=== PATIENT | female | born 2005 | race Caucasian/White ===

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

== ENCOUNTER 2024-02-02 19:55 | Emergency (ER) | payer OTHER, SELFPAY ==
--- NOTE | 2024-02-02 22:10 | RAD REPORT ---
EXAM: Hand Left 3 View HISTORY: [facility] MAIN PAIN Bed Name: [id number] COMPARISON: None TECHNIQUE: 3 radiographic views of the LEFT hand submitted. FINDINGS: No evidence of acute fracture or dislocation. Joint alignment is maintained. Dorsal soft t issue swelling is seen.. No significant degenerative changes are present. IMPRESSION: No significant bone or joint abnormality. Dorsal soft tissue swelling.
--- NOTE | 2024-02-02 22:15 | ER ---
Nurse's Notes [facility] Name: Wendie Marie Age: 18 yrs Sex: Female : 2005 Arrival Date: 02/02/2024 Time: 19:55 Bed DX4 Private MD: Diagnosis: Contusion of left hand;Sprain of other part of left wrist and hand Presentation: 02/01 20:22 Chief complaint: Patient states: Left hand pain onset Wednesday. Pt reports that she fell cm10 while playing flag football and has been having pain since then. Pt states that the pain radiates up to her elbow. Coronavirus screen: Client denies travel out of the [place] in the last 14 days. Ebola Screen: Patient denies travel to an Ebola-affected area in the 21 days before illness onset. No symptoms or risks identified at this time. Initial Sepsis Screen: Does the patient meet any 2 criteria? No. Patient's initial sepsis screen is negative. Does the patient have a suspected source of infection? No. Patient's initial sepsis screen is negative. Risk Assessment: Do you want to hurt yourself or someone else? Patient reports no desire to harm self or others. Onset of symptoms was January 31, 2024. 20:22 Method Of Arrival: Ambulatory cm10 20:22 Acuity: АЛЕКСАНДР 4 cm10 Triage Assessment: 20:23 General: Appears in no apparent distress. comfortable, Behavior is calm, cooperative. cm10 Neuro: No deficits noted. Level of Consciousness is awake, alert, obeys commands, Oriented to person, place, time, situation, Appropriate for age. Respiratory: No deficits noted. Airway is patent Respiratory effort is even, unlabored, Respiratory pattern is regular, symmetrical. Historical: - Allergies: 20:23 Benadryl; cm10 - PMHx: 20:23 allergies; Asthma; cm10 - Immunization history:: Adult Immunizations up to date. - Infectious Disease History:: Denies. - Social history:: Smoking status: Reported history of juuling and/or vaping. Screenin:33 [facility] ED Fall Risk Assessment (Adult) History of falling in the last 3 months, cp4 including since admission No falls in past 3 months (0 pts) Confusion or Disorientation No (0 pts) Intoxicated or Sedated No (0 pts) Impaired Gait No (0 pts) Mobility Assist Device Used No (0 pt) Altered Elimination No (0 pt) Score/Fall Risk Level 0 - 2 = Low Risk Oriented to surroundings, Maintained a safe environment, Assessed \T\ reinforced patient's understanding of fall precautions, Hourly rounding (assess needs \T\ fall precautionary measures) done. Abuse screen: Denies threats or abuse. Nutritional screening: No deficits noted. Tuberculosis screening: No symptoms or risk factors identified. Assessment: 23:32 General: Appears in no apparent distress. comfortable, Behavior is calm, cooperative, cp4 appropriate for age. Pain: Complains of pain in left hand. 23:33 Pain: Pain currently is 7 out of 10 on a pain scale. Neuro: Level of Consciousness is cp4 awake, alert, obeys commands, Oriented to person, place, time, situation. Cardiovascular: Patient's skin is warm and dry. Respiratory: Airway is patent Respiratory effort is even, unlabored. GI: No signs and/or symptoms were reported involving the gastrointestinal system. : No signs and/or symptoms were reported regarding the genitourinary system. EENT: No signs and/or symptoms were reported regarding the EENT system. Derm: No signs and/or symptoms reported regarding the dermatologic system. Musculoskeletal: Swelling present in left wrist Reports pain in left wrist. Vital Signs: 20:22 BP 125 / 87; Pulse 71; Resp 16; Temp 98.3; Pulse Ox 100% on R/A; Weight 107.05 kg; cm10 Height 5 ft. 5 in. ; Pain 7/10; 20:22 Body Mass Index 39.27 (107.05 kg, 165.1 cm) - Percentile 98.4 % cm10 20:22 Pain Scale: Adult cm10 ED Course: 19:56 Patient arrived in ED. jj6 20:23 Triage completed. cm10 20:23 Arm band placed on Patient placed in waiting room. cm10 20:27 Timmy Castillo NP is PHCP. pm1 20:27 Sachin Pierre MD is Attending Physician. pm1 21:32 Hand Left 3 View XRAY In Process Unspecified. EDMS 23:33 Bed in low position. Call light in reach. Side rails up X 1. Provided Education on: cp4 hand contusion. 23:33 No provider procedures requiring assistance completed. Patient did not have IV access cp4 during this emergency room visit. Administered Medications: No medications were administered Medication: 23:33 VIS not applicable for this client. cp4 Outcome: 22:14 Discharge ordered by . pm1 23:33 Discharged to home ambulatory, cp4 23:33 Condition: stable 23:33 Discharge instructions given to patient, Instructed on discharge instructions, follow up and referral plans. Demonstrated understanding of instructions, follow-up care, 23:36 Patient left the ED. cp4 Signatures: Dispatcher [employer] EDMS Timmy Castillo NP BULK PALLET BUILDER pm1 Lupe Cyrj6 Libertad Carlos RN RN cm10 Alisa Hummel cp4
--- NOTE | 2024-02-02 22:15 | EDPHYS ---
Physician Documentation [facility] Name: Wendie Marie Age: 18 yrs Sex: Female : 2005 Arrival Date: 02/02/2024 Time: 19:55 Bed DX4 Private MD: ED Physician Sachin Pierre HPI: 02/01 22:13 This 18 yrs old Female presents to ER via Ambulatory with complaints of Hand Injury. pm1 22:13 The patient or guardian reports injury, pain. The complaints affect the dorsum of left pm1 hand. Context: resulted from a fall, playing football. Onset: The symptoms/episode began/occurred 2 day(s) ago. Modifying factors: The symptoms are alleviated by nothing, the symptoms are aggravated by movement. Associated signs and symptoms: Pertinent negatives:. Severity of symptoms: in the emergency department the symptoms are unchanged, despite home interventions. The patient has not experienced similar symptoms in the past. The patient has not recently seen a physician. Historical: - Allergies: 20:23 Benadryl; cm10 - PMHx: 20:23 allergies; Asthma; cm10 - Immunization history:: Adult Immunizations up to date. - Infectious Disease History:: Denies. - Social history:: Smoking status: Reported history of juuling and/or vaping. ROS: 22:13 Constitutional: Negative for fever, chills, and weight loss, pm1 22:13 MS/extremity: Positive for pain, of the dorsum of left hand, 22:13 Skin: Positive for ecchymosis, of the dorsum of left hand, 22:13 All other systems are negative, Exam: 22:13 Constitutional: This is a well developed, well nourished patient who is awake, alert, pm1 and in no acute distress. Head/Face: Normocephalic, atraumatic. 22:13 Cardiovascular: Exam negative for acute changes, 22:13 Respiratory: Exam negative for acute changes, respiratory distress, 22:13 Musculoskeletal/extremity: Extremities: grossly normal except: noted in the dorsum of left hand: ecchymosis, swelling, tenderness, There is no evidence of decreased ROM, deformity, 22:13 Neuro: Exam negative for acute changes, Vital Signs: 20:22 BP 125 / 87; Pulse 71; Resp 16; Temp 98.3; Pulse Ox 100% on R/A; Weight 107.05 kg; cm10 Height 5 ft. 5 in. ; Pain 7/10; 20:22 Body Mass Index 39.27 (107.05 kg, 165.1 cm) - Percentile 98.4 % cm10 20:22 Pain Scale: Adult cm10 MDM: 20:31 Patient medically screened. pm1 22:13 Data reviewed: vital signs. pm1 22:13 Counseling: I had a detailed discussion with the patient and/or guardian regarding the pm1 historical points, exam findings, and any diagnostic results supporting the discharge/admit diagnosis, radiology results, the need for outpatient follow up, to return to the emergency department if symptoms worsen or persist or if there are any questions or concerns that arise at home. 02/01 20:31 Order name: Hand Left 3 View XRAY; Complete Time: 22:11 pm1 02/01 22:16 Order name: Splint: volar splint left hand; Complete Time: 23:36 pm1 Administered Medications: No medications were administered Disposition: 02/02 05:00 Co-signature as Attending Physician, Sachin Pierre MD I agree with the assessment sp4 and plan of care. I reviewed the patient's care provided by the Advanced Practice Provider and agree with the diagnosis and treatment plan. Disposition Summary: 02/02/24 22:14 Discharge Ordered Notes: Location: Home pm1 Problem: new pm1 Symptoms: have improved pm1 Condition: Stable pm1 Diagnosis - Contusion of left hand pm1 - Sprain of other part of left wrist and hand pm1 Followup: pm1 - With: Emergency Department - When: As needed - Reason: Worsening of condition Followup: pm1 - With: Private Physician - When: 2 - 3 days - Reason: Recheck today's complaints, Continuance of care, Re-evaluation by your physician Discharge Instructions: - Discharge Summary Sheet pm1 - Cast or Splint Care, Adult pm1 - Hand Contusion pm1 Forms: - Medication Reconciliation Form pm1 - Antibiotic Education pm1 - Prescription Opioid Use pm1 - Patient Portal Instructions pm1 - Leadership Thank You Letter pm1 - Work release form cp4 Signatures: Dispatcher [employer] EDMS Timmy Castillo, BREAKFAST SERVER BREAKFAST SERVER pm1 Sachin Pierre MD MD sp4 Libertad Carlos RN RN cm10 Corrections: (The following items were deleted from the chart) 02/01 20:32 20:32 Hand Left 3 View+RAD.RAD.BRZ ordered. EDMS EDMS
[2024-02-03 00:45] VITALS: BP 125/87; TEMP 98.3; O2SAT 100
== END 2024-02-02 23:36 | disposition home or self-care (01) ==
LOC: ER 19:55
DX: S63.8X2A Sprain of other part of left wrist and hand, initial encounter (principal)
CPT/HCPCS: 99282

== ENCOUNTER 2024-06-30 15:47 | Emergency (ER) | payer OTHER, SELFPAY ==
--- NOTE | 2024-06-30 16:56 | RAD REPORT ---
EXAMINATION: CT HEAD WITHOUT CONTRAST CLINICAL INDICATION: Female, 18 years old.fall, head injury TECHNIQUE: Axial CT images from the skull base to the vertex without intravenous contrast. Coronal an d sagittal reformatted images were created from the data set. One or more of the following dose reduction techniques were used: Automated exposure control, adjustment of the mA and/or kV according to patient size, and/or iterative reconstruction. Unless otherwise specified, incidental findings do not require dedicated imaging follow-up. [id number]. COMPARISON: No prior exam. FINDINGS: INTRACRANIAL: No acute intracranial hemorrhage. No hydrocephalus. No mass effect or midline shift. No significant white matter disease. VASCULATURE: No visualized abnormalities in the arteries or dural venous sinuses. SCALP/SKULL: No significant soft tissue or osseous abnormalities. SINUSES: The visualized paranasal sinuses and mastoid air cells are predominantly clear. IMPRESSION: No acute intracranial abnormality.
--- NOTE | 2024-06-30 16:58 | RAD REPORT ---
EXAMINATION: Wrist Left 3 View CLINICAL INDICATION: Female, 18 years old. fall;Pain COMPARISON: 10/10/23 VIEWS: As above FINDINGS: No acute fracture. No malalignment/dislocation. No significant focal degenerative change. Other: n/a IMPRESSION: No acute osseous abnormality.
--- NOTE | 2024-06-30 17:37 | ER ---
Nurse's Notes [facility] Name: Wendie Marie Age: 18 yrs Sex: Female : 2005 Arrival Date: 06/30/2024 Time: 15:47 Bed DX1 Private MD: Diagnosis: Unspecified injury of head, initial encounter;Concussion without loss of consciousness;Other specified sprain of left wrist Presentation: 06/30 16:23 Chief complaint: Patient states: she slipped on a lemon at work, and hit her head the ap3 back of her head after hitting her bottom/back, patient currently rates her pain as a 7/10 and states that the pain is intermittent. Patient states her head,, back and left wrist are what hurt after the fall. Coronavirus screen: At this time, the client does not indicate any symptoms associated with coronavirus-19. Ebola Screen: No symptoms or risks identified at this time. Mechanism of Injury: The problem was sustained at work, resulted from a fall, slipped. Initial Sepsis Screen: Does the patient meet any 2 criteria? No. Patient's initial sepsis screen is negative. Does the patient have a suspected source of infection? No. Patient's initial sepsis screen is negative. Risk Assessment: Do you want to hurt yourself or someone else? Patient reports no desire to harm self or others. Onset of symptoms was June 30, 2024. 16:23 Method Of Arrival: Ambulatory ap3 16:23 Acuity: АЛЕКСАНДР 3 ap3 Triage Assessment: 16:26 General: Appears in no apparent distress. Behavior is calm, cooperative, appropriate ap3 for age. Pain: Complains of pain in scalp, back and left wrist Pain currently is 7 out of 10 on a pain scale. Is intermittent. Neuro: Level of Consciousness is awake, alert, obeys commands, Oriented to person, place, time, situation, Appropriate for age Gait is steady, Speech is normal, Reports headache. Cardiovascular: Patient's skin is warm and dry. Respiratory: Airway is patent Respiratory effort is even, unlabored, Respiratory pattern is regular, symmetrical. 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 - Infectious Disease History:: Denies. - Social history:: Smoking status: Reported history of juuling and/or vaping. - Family history:: not pertinent. - Hospitalizations: : No recent hospitalization is reported. Screenin:26 Abuse screen: Denies threats or abuse. Nutritional screening: No deficits noted. ap3 Tuberculosis screening: No symptoms or risk factors identified. 19:42 [facility] ED Fall Risk Assessment (Adult) History of falling in the last 3 months, ap3 including since admission Yes- single mechanical fall (1 pt) Confusion or Disorientation No (0 pts) Intoxicated or Sedated No (0 pts) Impaired Gait No (0 pts) Mobility Assist Device Used No (0 pt) Altered Elimination No (0 pt) Score/Fall Risk Level 0 - 2 = Low Risk Oriented to surroundings, Maintained a safe environment, Educated pt \T\ family on fall prevention, incl call for assistance when getting out of bed, Assessed \T\ reinforced patient's understanding of fall precautions, Hourly rounding (assess needs \T\ fall precautionary measures) done, Used ambulatory aids as needed (educated on \T\ assisted with). Vital Signs: 16:23 BP 115 / 76; Pulse 80; Resp 16; Temp 98.5; Pulse Ox 100% ; Weight 99.79 kg; Height 5 ap3 ft. 5 in. ; Pain 7/10; 16:23 Body Mass Index 36.61 (99.79 kg, 165.1 cm) - Percentile 97.7 % ap3 16:23 Pain Scale: Adult ap3 Fredis Coma Score: 16:23 Eye Response: spontaneous(4). Motor Response: obeys commands(6). Verbal Response: ap3 oriented(5). Total: 15. 16:28 Eye Response: spontaneous(4). Motor Response: obeys commands(6). Verbal Response: rn oriented(5). Total: 15. 17:35 Eye Response: spontaneous(4). Motor Response: obeys commands(6). Verbal Response: rn oriented(5). Total: 15. ED Course: 15:51 Patient arrived in ED. mr 16:01 Chad Gambino MD is Attending Physician. rn 16:25 Triage completed. ap3 16:27 Arm band placed on right wrist. ap3 16:45 CT Head Brain wo Cont In Process Unspecified. EDMS 16:49 XRAY Wrist LEFT 3 view In Process Unspecified. EDMS 19:42 No provider procedures requiring assistance completed. Patient did not have IV access ap3 during this emergency room visit. 19:43 Patient has correct armband on for positive identification. Adult w/ patient. Provided ap3 Education on: discharge instructions . Administered Medications: 19:29 Drug: Ondansetron PO 4 mg PO once Route: PO; ap3 19:43 Follow up: Response: No adverse reaction ap3 Medication: 19:43 VIS not applicable for this client. ap3 Outcome: 17:36 Discharge ordered by . rn 19:42 Discharged to home with friend, ap3 19:42 Condition: good 19:42 Discharge instructions given to patient, friend, Instructed on Demonstrated understanding of instructions, follow-up care, medications, Prescriptions given X 1, 19:43 Patient left the ED. ap3 Signatures: Dispatcher [employer] EDMS Ida Azevedo, Reg Reg mr Chad Gambino MD MD rn Prokisch, Amanda, RN RN ap3
--- NOTE | 2024-06-30 17:37 | EDPHYS ---
Physician Documentation [facility] Name: Wendie Marie Age: 18 yrs Sex: Female : 2005 Arrival Date: 06/30/2024 Time: 15:47 Bed DX1 Private MD: ED Physician Chad Gambino HPI: 06/30 16:28 This 18 yrs old Female presents to ER via Ambulatory with complaints of Head rn Injury-Adult, Wrist Injury. 16:28 The patient or guardian reports injury. rn 16:28 The complaints affect the right side of the back of head. Onset: The symptoms/episode rn began/occurred 3 hour(s) ago. Severity of symptoms: At their worst the symptoms were mild, in the emergency department the symptoms are unchanged. The patient has not experienced similar symptoms in the past. Patient reports fall from standing, head back of head and has a bump to the head. No laceration. Also reports injured left wrist when she fell. No LOC. Not on blood thinners. Does report nausea with vomiting x 1 after head injury. Denies any injury to the neck or the back. No rib injury pain. 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 - Infectious Disease History:: Denies. - Social history:: Smoking status: Reported history of juuling and/or vaping. - Family history:: not pertinent. - Hospitalizations: : No recent hospitalization is reported. ROS: 16:28 Constitutional: Negative for fever, chills, and weight loss, Neck: Negative for injury, rn pain, and swelling, Cardiovascular: Negative for chest pain, palpitations, and edema, Respiratory: Negative for shortness of breath, cough, wheezing, and pleuritic chest pain, Abdomen/GI: Positive for nausea and vomiting x 1 Back: Negative for injury and pain, MS/Extremity: Positive for left wrist injury and pain Neuro: Positive for mild headache, negative for seizure Exam: 16:28 Constitutional: This is a well developed, well nourished patient who is awake, alert, rn and in no acute distress. Ambulatory to room without assistance or difficulty Head/Face: Normocephalic, right occipital cephalic hematoma without laceration or active bleeding. Eyes: Pupils equal round and reactive to light, extra-ocular motions intact. Lids and lashes normal. Conjunctiva and sclera are non-icteric and not injected. Cornea within normal limits. Periorbital areas with no swelling, redness, or edema. Neck: No midline cervical tenderness Cardiovascular: Regular rate and rhythm. No pulse deficits. Respiratory: No increased work of breathing, no retractions or nasal flaring. MS/ Extremity: Pulses equal, no cyanosis. Neurovascular intact. Full, normal range of motion. Equal circumference. Mild tenderness left distal ulna of wrist. No gross deformity or ecchymosis. Neuro: Awake and alert, GCS 15, oriented to person, place, time, and situation. Cranial nerves II-XII grossly intact. Motor strength 5/5 in all extremities. Sensory grossly intact. Cerebellar exam normal. Normal gait. Vital Signs: 16:23 BP 115 / 76; Pulse 80; Resp 16; Temp 98.5; Pulse Ox 100% ; Weight 99.79 kg; Height 5 ap3 ft. 5 in. ; Pain 7/10; 16:23 Body Mass Index 36.61 (99.79 kg, 165.1 cm) - Percentile 97.7 % ap3 16:23 Pain Scale: Adult ap3 Fredis Coma Score: 16:23 Eye Response: spontaneous(4). Motor Response: obeys commands(6). Verbal Response: ap3 oriented(5). Total: 15. 16:28 Eye Response: spontaneous(4). Motor Response: obeys commands(6). Verbal Response: rn oriented(5). Total: 15. 17:35 Eye Response: spontaneous(4). Motor Response: obeys commands(6). Verbal Response: rn oriented(5). Total: 15. MDM: 16:01 Medical Screening Exam initiated rn 17:35 Differential diagnosis: Contusion of Hematoma on Intracranial bleed- Concussion rn cerebral contusion. Data reviewed: vital signs, nurses notes, radiologic studies, CT scan, plain films, and as a result, I will discharge patient. Counseling: I had a detailed discussion with the patient and/or guardian regarding the historical points, exam findings, and any diagnostic results supporting the discharge/admit diagnosis, radiology results, the need for outpatient follow up, to return to the emergency department if symptoms worsen or persist or if there are any questions or concerns that arise at home. Special discussion: Based on the patient's history, exam and DX evaluation, there is no indication for emergent intervention or inpatient TX. It is understood by the patient/guardian that if the SXs persist or worsen they need to return immediately for re-evaluation. I discussed with the patient/guardian in detail that at this point there is no indication for admission to the hospital. It is understood, however, that if the symptoms persist or worsen the patient needs to return immediately for re-evaluation. 06/30 16:16 Order name: CT Head Brain wo Cont; Complete Time: 16:58 rn 06/30 16:16 Order name: XRAY Wrist LEFT 3 view; Complete Time: 16:58 rn Administered Medications: 19:29 Drug: Ondansetron PO 4 mg PO once Route: PO; ap3 19:43 Follow up: Response: No adverse reaction ap3 Disposition Summary: 06/30/24 17:36 Discharge Ordered Notes: Location: Home rn Problem: new rn Symptoms: have improved rn Condition: Stable rn Diagnosis - Unspecified injury of head, initial encounter rn - Concussion without loss of consciousness rn - Other specified sprain of left wrist rn Followup: rn - With: Private Physician - When: As needed - Reason: Recheck today's complaints, Re-evaluation by your physician Discharge Instructions: - Discharge Summary Sheet rn - Concussion, Adult rn - Head Injury, Adult rn - Post-Concussion Syndrome rn Forms: - Medication Reconciliation Form rn - Antibiotic mds rn - Prescription Opioid Use rn - Patient Portal Instructions rn - Leadership Thank You Letter rn - Work release form ap3 Prescriptions: - ondansetron 4 mg Oral Tablet,disintegrating - take 1 tablet ORAL route every 8 hours As needed; 12 tablet; Refills: 0, rn Product Selection Permitted Signatures: Dispatcher [employer] Chad Sanz MD MD rn Prokisch, Amanda, RN RN ap3
[2024-06-30] MEDS ORDERED: ONDANSETRON 4 MG (ODT) TAB ONE (19:23)
[2024-07-01 07:38] VITALS: BP 115/76; TEMP 98.5; O2SAT 100
== END 2024-06-30 19:43 | disposition home or self-care (01) ==
LOC: ER 15:47
DX: S06.0X0A Concussion without loss of consciousness, initial encounter (principal); S63.592A Other specified sprain of left wrist, initial encounter; W18.30XA Fall on same level, unspecified, initial encounter
CPT/HCPCS: 70450; 73110; 99283; Q0162

== ENCOUNTER 2024-12-21 23:06 | Emergency (ER) | payer OTHER, SELFPAY ==
--- OUTSIDE RECORDS SUMMARY | 2024-12-21 23:15 | XMS REPORT | Continuity of Care Document ---
Author Name Unknown Address [address] [facility] [address] [place] [address] [facility] Address [address] [facility]. 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 Role Phone Annabel Ramos Primary Care Physician + LYNN ALANIS Attending Clinician Unavailable EMELY VOGEL Attending Clinician Unavailable Emely Vogel MD Attending Clinician [phone] COREY GONZALEZ Attending Clinician Unavailable Corey Gonzalez MD Attending Clinician [phone] Pgy3 Attending Clinician Unavailable TRAM GOMES Attending Clinician Unavailable Tram Gomes MD Attending Clinician [phone] Unknown, Attending Attending Clinician Unavailab le Doctor Unassigned, [place] Attending Clinician U navailANNABEL Mayer Attending Clinician Unavaila Annabel Price Attending Clinician GARRETT DIXON Attending Clinician Unavailable Garrett Dixon PA-C Attending Clinician [phone] Lab, Christiano Rivas Attending Clinician Unavailable Ro Rosa NP Attending Clinician + [phone] RO ROSA Attending Clinician Unavaila CAROLYN Nj Attending Clinician Unavailabl e Rebeka CENTRALIZED TRAFFIC CONTROL OPERATOR, Carolyn Attending Clinician [phone] Provider, [facility] Attending Clinician Unavailable DAKOTA ROSALES Attending Clinician Unavailable ADITI TURNER Attending Clinician Unavailab Aditi Ledesma DO Attending Clinician [phone] Maria T RNJuana M Attending Clinician Unavailable Only, Christiano Rivas Test Attending Clinician UnavailGifty Hooks Attending Clinician [phone] GIFTY FRIEND Attending Clinician Unavailable GRZEGORZ ONEILL Attending Clinician Unavailable ANGELES LIZARRAGA Attending Clinician Unavailab Angeles Torres PA-C Attending Clinician [phone] JOHNNY SPENCE Attending Clinician Unavailable MILY RUGGIERO Attending Clinician Unavailable COREY GONZALEZ Admitting Clinician Unavailable Payers Payer Name Policy Type Policy Number Effective Date Expirati on Date Source [place] [id number] [employer] 94 9 [id number] 2024 00:00:00 [facility] STAR [id number] 2019 00:00:00 [facility] STAR [id number] 2018 00:00:00 Problems Condition Name Condition Details Condition Category Status Onset Date Resolution Date Last Treatment Date Treating Clinician Comments Source Oral contracept ion initial prescripti on Oral contracept ion initial prescripti on Disease Active 08-07 00:00: 00 [facility] Irregular menstrual cycle Irregular menstrual cycle Disease Active 08-07 00:00: 00 [facility] Obesity, pediatric, 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 ICD10 Diagnosis Term Resin Coater Utility [facility] Allergies, Adverse Reactions, Alerts Allergy Name Allergy Type Status Severity Reaction(s) Onset Date Inactive Date Treating Clinician Comments Source Diphenhy dramine Propensi ty to adverse reaction s Active Rash 07-07 00:00: 00 Janina Vergara - Externa l BENZOYL PEROXIDE DRUG INGREDI Active Rash 2017-05 00:00: 00 [facility] Benzoyl Peroxide Propensi ty to adverse reaction s Active Rash 2017-05 00:00: 00 [facility] BENADRYL COLD/FLU DRUG Active Rash 01-23 00:00: 00 [facility] Benadryl Cold/Flu Propensi ty to adverse reaction s Active Rash 01-23 00:00: 00 [facility] Family History Family Member Diagnosis Comments Start Date Stop Date Sourc e Natural father Asthma Unive [facility] Maternal grandfather Cancer [facility] Maternal grandfather Heart [facility] Maternal grandfather Hypertension [facility] Maternal grandmother Depression [facility] Maternal grandmother Hypertension [facility] Maternal grandmother Other - see comments [facility] Natural mother Anxiety Unive [facility] Natural mother Depression [facility] Paternal grandmother Hypertension [facility] Paternal grandmother Other - see comments [facility] Social History Social Habit Start Date Stop Date Quantity Comments Source Sexual orientation Ana Cristina Vergara - External History of tobacco use Occasional tobacco smoker Janina Vergara - External ASSERTION Not Janina Vergara - External Gender identity [facility] Tobacco use and exposure 2024-07-07 00:00:00 2024-07-07 00:00:00 Smokeless tobacco non-user Janina Vergara - External Alcoholic beverage intake 2024-07-07 00:00:00 2024-07-07 00:00:00 Lifetime non-drinker (finding) Janina Angmirian - Janay History of Social function 2024-07-07 00:00:00 2024-07-07 00:00:00 Janina Sejorge luislana - External Sex 2024-03-15 21:44:47 2024-03-15 21:44:47 Female (finding) Janina Angjorge luislana - External Alcohol intake 2023-02-24 00:00:00 2023-02-24 00:00:00 Lifetime non-drinker (finding) [facility] Exposure to SARS-CoV-2 (event) 2022-07-28 00:00:00 2022-08-07 12:27:00 Not sure [facility] Sex assigned at 2004 00:00:00 2005 00:00:00 Janina Gustafson Smoking Status Start Date Stop Date Source Occasional tobacco smoker 2024-07-07 00:00:00 Janina Gustafson Never smoked tobacco [facility] Medications Ordered Medication Name Filled Medication Name Start Date Stop Date Current Medication? Ordering Clinician Indication Dosage Frequency Signature (SIG) Comments Components Source Phenylephri ne-DM-GG-AP AP (MUCINEX FAST-MAX CLD FLU THRT OR) 07-07 11:13: 50 Yes Take by mouth. Janina tejada Benzonatate 200 MG oral Capsule 07-07 00:00: 00 Yes [id number] 200mg [id number] 3D Take 1 capsule (200 mg total) by mouth 3 times daily as needed for cough. Janina tejada Amoxicillin -Pot Clavulanate 875-125 MG oral Tablet 07-07 00:00: 00 07-15 05:59 :00 No [id number] 1{tbl} Q.5D Take 1 tablet by mouth 2 times daily for 7 days. Janina tejada medroxyPROG ESTERone (DEPO-PROVE RA) injection 150 mg 01-25 20:00: 00 Yes [id number] 150mg [facility] ondansetron 4 mg disintegrat ing tablet 9-11 00:00: 00 Yes [id number] 4mg Take 1 tablet by mouth every 8 (eight) hours as needed for Nausea and Vomiting (N/V). [facility] albuterol 90 mcg/actuati on inhaler - 00:00: 00 Yes [id number] 2{puff} Inhale 2 Puffs every 6 (six) hours as needed for Wheezing or Shortness of Breath. [facility] amoxicillin 500 mg capsule 6- 00:00: 00 11-04 04:59 :00 No [id number] 500mg Take 1 capsule by mouth in the morning and 1 capsule in the evening. Do all this for 7 days. [facility] drospirenon e-ethinyl estradioL (CHANDANA, 28,) 3-0.02 mg per tablet 08-07 00:00: 00 Yes [id number] 1{tbl} Take 1 tablet by mouth in the morning. [facility] ondansetron (ZOFRAN-ODT ) disintegrat ing tablet 4 mg 2021-05 2-10 19:57: 00 04-18 20:00 :00 No [id number] 4mg [facility] ondansetron 4 mg disintegrat ing tablet 2021-05 2-10 00:00: 00 01-18 00:00 :00 No [id number] 4mg Take 1 tablet by mouth every 8 (eight) hours as needed for Nausea and Vomiting (N/V). [facility] cetirizine (ZYRTEC) 10 mg tablet - 00:00: 00 02-28 04:59 :00 No [id number] 10mg Take 1 tablet by mouth in the morning for 30 days. [facility] LOESTRIN FE (LOESTRIN FE 05/29) 1 mg-20 mcg (21)/75 mg (7) tablet 01-06 00:00: 00 08-07 00:00 :00 No [id number] Start day 1 of menstrual cycle or Wednesday after onset of menses [facility] clindamycin 1 % gel 10-29 00:00: 00 Yes [id number] Apply to area(s) every morning. [facility] clindamycin 1 % gel 10-29 00:00: 00 Yes [id number] Apply to area(s) every morning. [facility] EPINEPHrine (EPIPEN) 0.3 mg/0.3 mL injection 09-09 00:00: 00 Yes [id number] 2 danielle epi pen / Inject IM in thigh for anaphylaxi s [facility] albuterol 90 mcg/actuati on inhaler 09-09 00:00: 00 12-30 00:00 :00 No [id number] 2{puff} Inhale 2 Puffs every 6 (six) hours as needed for Wheezing or Shortness of Breath. [facility] tretinoin 0.05 % cream 01-08 00:00: 00 Yes [id number] Apply to affected area(s) at bedtime. [facility] doxycycline hyclate 100 mg tablet 01-08 00:00: 00 Yes [id number] 100mg Take 1 tablet by mouth daily. [facility] budesonide- formoteroL (SYMBICORT) 80-4.5 mcg/actuati on inhaler 01-08 00:00: 00 Yes [id number] 2{puff} Inhale 2 Puffs 2 (two) times daily. [facility] pseudoephed rine HCl (SUDAFED ORAL) 11-14 13:41: 25 Yes Take by mouth as needed. [facility] Immunizations Ordered Immunization Name Filled Immunization Name Date Status Comments Source Meningococcal B, OMV 2022-01-15 00:00:00 Completed [facility] Meningococcal B, OMV 2022-01-15 00:00:00 Completed [facility] Meningococcal B, OMV 2022-01-15 00:00:00 Completed [facility] Meningococcal B, OMV 2022-01-15 00:00:00 Completed [facility] Meningococcal B, OMV 2022-01-15 00:00:00 Completed [facility] Meningococcal B, OMV 2022-01-15 00:00:00 Completed [facility] Meningococcal B, OMV 2022-01-15 00:00:00 Completed [facility] Meningococcal B, OMV 2022-01-15 00:00:00 Completed [facility] Meningococcal B, OMV 2022-01-15 00:00:00 Completed [facility] Meningococcal B, OMV 2022-01-15 00:00:00 Completed [facility] Meningococcal B, OMV 2022-01-15 00:00:00 Completed [facility] Meningococcal B, V 2022-01-15 00:00:00 Completed [facility] Meningococcal B, OMV 2022-01-15 00:00:00 Completed [facility] Meningococcal B, V 2022-01-15 00:00:00 Completed [facility] Meningococcal B, OMV 2022-01-15 00:00:00 Completed [facility] Meningococcal B, OMV 2022-01-15 00:00:00 Completed [facility] Meningococcal B, OMV 2022-01-15 00:00:00 Completed [facility] Meningococcal Polysaccharide (groups A, C, Y and W-135) conjugate vaccine (MCV4P) 2021-01-08 00:00:00 Completed [facility] Meningococcal Polysaccharide (groups A, C, Y and W-135) conjugate vaccine (MCV4P) 2021-01-08 00:00:00 Completed [facility] Meningococcal Polysaccharide (groups A, C, Y and W-135) conjugate vaccine (MCV4P) 2021-01-08 00:00:00 Completed [facility] Meningococcal Polysaccharide (groups A, C, Y and W-135) conjugate vaccine (MCV4P) 2021-01-08 00:00:00 Completed [facility] Meningococcal Polysaccharide (groups A, C, Y and W-135) conjugate vaccine (MCV4P) 2021-01-08 00:00:00 Completed [facility] Meningococcal Polysaccharide (groups A, C, Y and W-135) conjugate vaccine (MCV4P) 2021-01-08 00:00:00 Completed [facility] Meningococcal Polysaccharide (groups A, C, Y and W-135) conjugate vaccine (MCV4P) 2021-01-08 00:00:00 Completed [facility] Meningococcal Polysaccharide (groups A, C, Y and W-135) conjugate vaccine (MCV4P) 2021-01-08 00:00:00 Completed [facility] Meningococcal Polysaccharide (groups A, C, Y and W-135) conjugate vaccine (MCV4P) 2021-01-08 00:00:00 Completed [facility] Meningococcal Polysaccharide (groups A, C, Y and W-135) conjugate vaccine (MCV4P) 2021-01-08 00:00:00 Completed [facility] Meningococcal Polysaccharide (groups A, C, Y and W-135) conjugate vaccine (MCV4P) 2021-01-08 00:00:00 Completed [facility] Meningococcal Polysaccharide (groups A, C, Y and W-135) conjugate vaccine (MCV4P) 2021-01-08 00:00:00 Completed [facility] Meningococcal Polysaccharide (groups A, C, Y and W-135) conjugate vaccine (MCV4P) 2021-01-08 00:00:00 Completed [facility] Meningococcal Polysaccharide (groups A, C, Y and W-135) conjugate vaccine (MCV4P) 2021-01-08 00:00:00 Completed [facility] Meningococcal Polysaccharide (groups A, C, Y and W-135) conjugate vaccine (MCV4P) 2021-01-08 00:00:00 Completed [facility] Meningococcal Polysaccharide (groups A, C, Y and W-135) conjugate vaccine (MCV4P) 2021-01-08 00:00:00 Completed [facility] Meningococcal Polysaccharide (groups A, C, Y and W-135) conjugate vaccine (MCV4P) 2021-01-08 00:00:00 Completed [facility] SARS-COV-2 COVID-19 PFIZER VACCINE 2020-12-30 00:00:00 Completed [facility] SARS-COV-2 COVID-19 PFIZER VACCINE 2020-12-30 00:00:00 Completed [facility] SARS-COV-2 COVID-19 PFIZER VACCINE 2020-12-30 00:00:00 Completed [facility] SARS-COV-2 COVID-19 PFIZER VACCINE 2020-12-30 00:00:00 Completed [facility] SARS-COV-2 COVID-19 PFIZER VACCINE 2020-12-30 00:00:00 Completed [facility] SARS-COV-2 COVID-19 PFIZER VACCINE 2020-12-30 00:00:00 Completed [facility] SARS-COV-2 COVID-19 PFIZER VACCINE 2020-12-30 00:00:00 Completed [facility] SARS-COV-2 COVID-19 PFIZER VACCINE 2020-12-30 00:00:00 Completed [facility] SARS-COV-2 COVID-19 PFIZER VACCINE 2020-12-30 00:00:00 Completed [facility] SARS-COV-2 COVID-19 PFIZER VACCINE 2020-12-30 00:00:00 Completed [facility] SARS-COV-2 COVID-19 PFIZER VACCINE 2020-12-30 00:00:00 Completed [facility] SARS-COV-2 COVID-19 PFIZER VACCINE 2020-12-30 00:00:00 Completed [facility] SARS-COV-2 COVID-19 PFIZER VACCINE 2020-12-30 00:00:00 Completed [facility] SARS-COV-2 COVID-19 PFIZER VACCINE 2020-12-30 00:00:00 Completed [facility] SARS-COV-2 COVID-19 PFIZER VACCINE 2020-12-30 00:00:00 Completed [facility] SARS-COV-2 COVID-19 PFIZER VACCINE 2020-12-30 00:00:00 Completed [facility] SARS-COV-2 COVID-19 PFIZER VACCINE 2020-12-30 00:00:00 Completed [facility] HPV9 2016-05-29 00:00:00 Completed [facility] HPV9 2016-05-29 00:00:00 Completed [facility] HPV9 2016-05-29 00:00:00 Completed [facility] HPV9 2016-05-29 00:00:00 Completed [facility] HPV9 2016-05-29 00:00:00 Completed [facility] HPV9 2016-05-29 00:00:00 Completed [facility] HPV9 2016-05-29 00:00:00 Completed [facility] HPV9 2016-05-29 00:00:00 Completed [facility] HPV9 2016-05-29 00:00:00 Completed [facility] HPV9 2016-05-29 00:00:00 Completed [facility] HPV9 2016-05-29 00:00:00 Completed [facility] HPV9 2016-05-29 00:00:00 Completed [facility] HPV9 2016-05-29 00:00:00 Completed [facility] HPV9 2016-05-29 00:00:00 Completed [facility] HPV9 2016-05-29 00:00:00 Completed [facility] HPV9 2016-05-29 00:00:00 Completed [facility] HPV9 2016-05-29 00:00:00 Completed [facility] HPV9 2016-01-29 00:00:00 Completed [facility] HPV9 2016-01-29 00:00:00 Completed [facility] HPV9 2016-01-29 00:00:00 Completed [facility] HPV9 2016-01-29 00:00:00 Completed [facility] HPV9 2016-01-29 00:00:00 Completed [facility] HPV9 2016-01-29 00:00:00 Completed [facility] HPV9 2016-01-29 00:00:00 Completed [facility] HPV9 2016-01-29 00:00:00 Completed [facility] HPV9 2016-01-29 00:00:00 Completed [facility] HPV9 2016-01-29 00:00:00 Completed [facility] HPV9 2016-01-29 00:00:00 Completed [facility] HPV9 2016-01-29 00:00:00 Completed [facility] HPV9 2016-01-29 00:00:00 Completed [facility] HPV9 2016-01-29 00:00:00 Completed [facility] HPV9 2016-01-29 00:00:00 Completed [facility] HPV9 2016-01-29 00:00:00 Completed [facility] HPV9 2016-01-29 00:00:00 Completed [facility] HPV9 2015-11-13 00:00:00 Completed [facility] Meningococcal Polysaccharide (groups A, C, Y and W-135) conjugate vaccine (MCV4P) 2015-11-13 00:00:00 Completed [facility] TDAP 2015-11-13 00:00:00 Completed [facility] HPV9 2015-11-13 00:00:00 Completed [facility] Meningococcal Polysaccharide (groups A, C, Y and W-135) conjugate vaccine (MCV4P) 2015-11-13 00:00:00 Completed [facility] TDAP 2015-11-13 00:00:00 Completed [facility] HPV9 2015-11-13 00:00:00 Completed [facility] Meningococcal Polysaccharide (groups A, C, Y and W-135) conjugate vaccine (MCV4P) 2015-11-13 00:00:00 Completed [facility] TDAP 2015-11-13 00:00:00 Completed [facility] HPV9 2015-11-13 00:00:00 Completed [facility] Meningococcal Polysaccharide (groups A, C, Y and W-135) conjugate vaccine (MCV4P) 2015-11-13 00:00:00 Completed [facility] TDAP 2015-11-13 00:00:00 Completed [facility] HPV9 2015-11-13 00:00:00 Completed [facility] Meningococcal Polysaccharide (groups A, C, Y and W-135) conjugate vaccine (MCV4P) 2015-11-13 00:00:00 Completed [facility] TDAP 2015-11-13 00:00:00 Completed [facility] HPV9 2015-11-13 00:00:00 Completed [facility] Meningococcal Polysaccharide (groups A, C, Y and W-135) conjugate vaccine (MCV4P) 2015-11-13 00:00:00 Completed [facility] TDAP 2015-11-13 00:00:00 Completed [facility] HPV9 2015-11-13 00:00:00 Completed [facility] Meningococcal Polysaccharide (groups A, C, Y and W-135) conjugate vaccine (MCV4P) 2015-11-13 00:00:00 Completed [facility] TDAP 2015-11-13 00:00:00 Completed [facility] HPV9 2015-11-13 00:00:00 Completed [facility] Meningococcal Polysaccharide (groups A, C, Y and W-135) conjugate vaccine (MCV4P) 2015-11-13 00:00:00 Completed [facility] TDAP 2015-11-13 00:00:00 Completed [facility] HPV9 2015-11-13 00:00:00 Completed [facility] Meningococcal Polysaccharide (groups A, C, Y and W-135) conjugate vaccine (MCV4P) 2015-11-13 00:00:00 Completed [facility] TDAP 2015-11-13 00:00:00 Completed [facility]9 2015-11-13 00:00:00 Completed [facility] Meningococcal Polysaccharide (groups A, C, Y and W-135) conjugate vaccine (MCV4P) 2015-11-13 00:00:00 Completed [facility] TDAP 2015-11-13 00:00:00 Completed [facility] HPV9 2015-11-13 00:00:00 Completed [facility] Meningococcal Polysaccharide (groups A, C, Y and W-135) conjugate vaccine (MCV4P) 2015-11-13 00:00:00 Completed [facility] TDAP 2015-11-13 00:00:00 Completed [facility] HPV9 2015-11-13 00:00:00 Completed [facility] Meningococcal Polysaccharide (groups A, C, Y and W-135) conjugate vaccine (MCV4P) 2015-11-13 00:00:00 Completed [facility] TDAP 2015-11-13 00:00:00 Completed [facility] HPV9 2015-11-13 00:00:00 Completed [facility] Meningococcal Polysaccharide (groups A, C, Y and W-135) conjugate vaccine (MCV4P) 2015-11-13 00:00:00 Completed [facility] TDAP 2015-11-13 00:00:00 Completed [facility] HPV9 2015-11-13 00:00:00 Completed [facility] Meningococcal Polysaccharide (groups A, C, Y and W-135) conjugate vaccine (MCV4P) 2015-11-13 00:00:00 Completed [facility] TDAP 2015-11-13 00:00:00 Completed [facility] HPV9 2015-11-13 00:00:00 Completed [facility] Meningococcal Polysaccharide (groups A, C, Y and W-135) conjugate vaccine (MCV4P) 2015-11-13 00:00:00 Completed [facility] TDAP 2015-11-13 00:00:00 Completed [facility] HPV9 2015-11-13 00:00:00 Completed [facility] Meningococcal Polysaccharide (groups A, C, Y and W-135) conjugate vaccine (MCV4P) 2015-11-13 00:00:00 Completed [facility] TDAP 2015-11-13 00:00:00 Completed [facility] HPV9 2015-11-13 00:00:00 Completed [facility] Meningococcal Polysaccharide (groups A, C, Y and W-135) conjugate vaccine (MCV4P) 2015-11-13 00:00:00 Completed [facility] TDAP 2015-11-13 00:00:00 Completed [facility] Influenza Virus Vaccine 2013-01-02 00:00:00 Completed [facility] Influenza Virus Vaccine 2013-01-02 00:00:00 Completed [facility] Influenza Virus Vaccine 2013-01-02 00:00:00 Completed [facility] Influenza Virus Vaccine 2013-01-02 00:00:00 Completed [facility] Influenza Virus Vaccine 2013-01-02 00:00:00 Completed [facility] Influenza Virus Vaccine 2013-01-02 00:00:00 Completed [facility] Influenza Virus Vaccine 2013-01-02 00:00:00 Completed [facility] Influenza Virus Vaccine 2013-01-02 00:00:00 Completed [facility] Influenza Virus Vaccine 2013-01-02 00:00:00 Completed [facility] Influenza Virus Vaccine 2013-01-02 00:00:00 Completed [facility] Influenza Virus Vaccine 2013-01-02 00:00:00 Completed [facility] Influenza Virus Vaccine 2013-01-02 00:00:00 Completed [facility] Influenza Virus Vaccine 2013-01-02 00:00:00 Completed [facility] Influenza Virus Vaccine 2013-01-02 00:00:00 Completed [facility] Influenza Virus Vaccine 2013-01-02 00:00:00 Completed [facility] Influenza Virus Vaccine 2013-01-02 00:00:00 Completed [facility] Influenza Virus Vaccine 2013-01-02 00:00:00 Completed [facility] Influenza Virus Vaccine 2010-05-27 00:00:00 Completed [facility] Influenza Virus Vaccine 2010-05-27 00:00:00 Completed [facility] Influenza Virus Vaccine 2010-05-27 00:00:00 Completed [facility] Influenza Virus Vaccine 2010-05-27 00:00:00 Completed [facility] Influenza Virus Vaccine 2010-05-27 00:00:00 Completed [facility] Influenza Virus Vaccine 2010-05-27 00:00:00 Completed [facility] Influenza Virus Vaccine 2010-05-27 00:00:00 Completed [facility] Influenza Virus Vaccine 2010-05-27 00:00:00 Completed [facility] Influenza Virus Vaccine 2010-05-27 00:00:00 Completed [facility] Influenza Virus Vaccine 2010-05-27 00:00:00 Completed [facility] Influenza Virus Vaccine 2010-05-27 00:00:00 Completed [facility] Influenza Virus Vaccine 2010-05-27 00:00:00 Completed [facility] Influenza Virus Vaccine 2010-05-27 00:00:00 Completed [facility] Influenza Virus Vaccine 2010-05-27 00:00:00 Completed [facility] Influenza Virus Vaccine 2010-05-27 00:00:00 Completed [facility] Influenza Virus Vaccine 2010-05-27 00:00:00 Completed [facility] Influenza Virus Vaccine 2010-05-27 00:00:00 Completed [facility] DTAP 2008-11-13 00:00:00 Completed [facility] Varicella (varivax)(chicken pox) 2008-11-13 00:00:00 Completed [facility] MMR 2008-11-13 00:00:00 Completed [facility] Polio (IPV/OPV) 2008-11-13 00:00:00 Completed [facility] DTAP 2008-11-13 00:00:00 Completed [facility] Varicella (varivax)(chicken pox) 2008-11-13 00:00:00 Completed [facility] MMR 2008-11-13 00:00:00 Completed [facility] Polio (IPV/OPV) 2008-11-13 00:00:00 Completed [facility] DTAP 2008-11-13 00:00:00 Completed [facility] Varicella (varivax)(chicken pox) 2008-11-13 00:00:00 Completed [facility] MMR 2008-11-13 00:00:00 Completed [facility] Polio (IPV/OPV) 2008-11-13 00:00:00 Completed [facility] DTAP 2008-11-13 00:00:00 Completed [facility] Varicella (varivax)(chicken pox) 2008-11-13 00:00:00 Completed [facility] MMR 2008-11-13 00:00:00 Completed [facility] Polio (IPV/OPV) 2008-11-13 00:00:00 Completed [facility] DTAP 2008-11-13 00:00:00 Completed [facility] Varicella (varivax)(chicken pox) 2008-11-13 00:00:00 Completed [facility] MMR 2008-11-13 00:00:00 Completed [facility] Polio (IPV/OPV) 2008-11-13 00:00:00 Completed [facility] DTAP 2008-11-13 00:00:00 Completed [facility] Varicella (varivax)(chicken pox) 2008-11-13 00:00:00 Completed [facility] MMR 2008-11-13 00:00:00 Completed [facility] Polio (IPV/OPV) 2008-11-13 00:00:00 Completed [facility] DTAP 2008-11-13 00:00:00 Completed [facility] Varicella (varivax)(chicken pox) 2008-11-13 00:00:00 Completed [facility] MMR 2008-11-13 00:00:00 Completed [facility] Polio (IPV/OPV) 2008-11-13 00:00:00 Completed [facility] DTAP 2008-11-13 00:00:00 Completed [facility] Varicella (varivax)(chicken pox) 2008-11-13 00:00:00 Completed [facility] MMR 2008-11-13 00:00:00 Completed [facility] Polio (IPV/OPV) 2008-11-13 00:00:00 Completed [facility] DTAP 2008-11-13 00:00:00 Completed [facility] Varicella (varivax)(chicken pox) 2008-11-13 00:00:00 Completed [facility] MMR 2008-11-13 00:00:00 Completed [facility] Polio (IPV/OPV) 2008-11-13 00:00:00 Completed [facility] DTAP 2008-11-13 00:00:00 Completed [facility] Varicella (varivax)(chicken pox) 2008-11-13 00:00:00 Completed [facility] MMR 2008-11-13 00:00:00 Completed [facility] Polio (IPV/OPV) 2008-11-13 00:00:00 Completed [facility] DTAP 2008-11-13 00:00:00 Completed [facility] Varicella (varivax)(chicken pox) 2008-11-13 00:00:00 Completed [facility] MMR 2008-11-13 00:00:00 Completed [facility] Polio (IPV/OPV) 2008-11-13 00:00:00 Completed [facility] DTAP 2008-11-13 00:00:00 Completed [facility] Varicella (varivax)(chicken pox) 2008-11-13 00:00:00 Completed [facility] MMR 2008-11-13 00:00:00 Completed [facility] Polio (IPV/OPV) 2008-11-13 00:00:00 Completed [facility] DTAP 2008-11-13 00:00:00 Completed [facility] Varicella (varivax)(chicken pox) 2008-11-13 00:00:00 Completed [facility] MMR 2008-11-13 00:00:00 Completed [facility] Polio (IPV/OPV) 2008-11-13 00:00:00 Completed [facility] DTAP 2008-11-13 00:00:00 Completed [facility] Varicella (varivax)(chicken pox) 2008-11-13 00:00:00 Completed [facility] MMR 2008-11-13 00:00:00 Completed [facility] Polio (IPV/OPV) 2008-11-13 00:00:00 Completed [facility] DTAP 2008-11-13 00:00:00 Completed [facility] Varicella (varivax)(chicken pox) 2008-11-13 00:00:00 Completed [facility] MMR 2008-11-13 00:00:00 Completed [facility] Polio (IPV/OPV) 2008-11-13 00:00:00 Completed [facility] DTAP 2008-11-13 00:00:00 Completed [facility] Varicella (varivax)(chicken pox) 2008-11-13 00:00:00 Completed [facility] MMR 2008-11-13 00:00:00 Completed [facility] Polio (IPV/OPV) 2008-11-13 00:00:00 Completed [facility] DTAP 2008-11-13 00:00:00 Completed [facility] Varicella (varivax)(chicken pox) 2008-11-13 00:00:00 Completed [facility] MMR 2008-11-13 00:00:00 Completed [facility] Polio (IPV/OPV) 2008-11-13 00:00:00 Completed [facility] Influenza Virus Vaccine 2008-03-22 00:00:00 Completed [facility] Influenza Virus Vaccine 2008-03-22 00:00:00 Completed [facility] Influenza Virus Vaccine 2008-03-22 00:00:00 Completed [facility] Influenza Virus Vaccine 2008-03-22 00:00:00 Completed [facility] Influenza Virus Vaccine 2008-03-22 00:00:00 Completed [facility] Influenza Virus Vaccine 2008-03-22 00:00:00 Completed [facility] Influenza Virus Vaccine 2008-03-22 00:00:00 Completed [facility] Influenza Virus Vaccine 2008-03-22 00:00:00 Completed [facility] Influenza Virus Vaccine 2008-03-22 00:00:00 Completed [facility] Influenza Virus Vaccine 2008-03-22 00:00:00 Completed [facility] Influenza Virus Vaccine 2008-03-22 00:00:00 Completed [facility] Influenza Virus Vaccine 2008-03-22 00:00:00 Completed [facility] Influenza Virus Vaccine 2008-03-22 00:00:00 Completed [facility] Influenza Virus Vaccine 2008-03-22 00:00:00 Completed [facility] Influenza Virus Vaccine 2008-03-22 00:00:00 Completed [facility] Influenza Virus Vaccine 2008-03-22 00:00:00 Completed [facility] Influenza Virus Vaccine 2008-03-22 00:00:00 Completed [facility] HEPATITIS A 2007-09-15 00:00:00 Completed [facility] HEPATITIS A 2007-09-15 00:00:00 Completed [facility] HEPATITIS A 2007-09-15 00:00:00 Completed [facility] HEPATITIS A 2007-09-15 00:00:00 Completed [facility] HEPATITIS A 2007-09-15 00:00:00 Completed [facility] HEPATITIS A 2007-09-15 00:00:00 Completed [facility] HEPATITIS A 2007-09-15 00:00:00 Completed [facility] HEPATITIS A 2007-09-15 00:00:00 Completed [facility] HEPATITIS A 2007-09-15 00:00:00 Completed [facility] HEPATITIS A 2007-09-15 00:00:00 Completed [facility] HEPATITIS A 2007-09-15 00:00:00 Completed [facility] HEPATITIS A 2007-09-15 00:00:00 Completed [facility] HEPATITIS A 2007-09-15 00:00:00 Completed [facility] HEPATITIS A 2007-09-15 00:00:00 Completed [facility] HEPATITIS A 2007-09-15 00:00:00 Completed [facility] HEPATITIS A 2007-09-15 00:00:00 Completed [facility] HEPATITIS A 2007-09-15 00:00:00 Completed [facility] DTAP 2006-04-15 00:00:00 Completed [facility] HIB 4 Dose Schedule 2006-04-15 00:00:00 Completed [facility] HEPATITIS A 2006-04-15 00:00:00 Completed [facility] MMR 2006-04-15 00:00:00 Completed [facility] Pneumococcal 7 Conjugate, PCV7 (Prevnar7) 2006-04-15 00:00:00 Completed [facility] Varicella (varivax)(chicken pox) 2006-04-15 00:00:00 Completed [facility] DTAP 2006-04-15 00:00:00 Completed [facility] HIB 4 Dose Schedule 2006-04-15 00:00:00 Completed [facility] HEPATITIS A 2006-04-15 00:00:00 Completed [facility] MMR 2006-04-15 00:00:00 Completed [facility] Pneumococcal 7 Conjugate, PCV7 (Prevnar7) 2006-04-15 00:00:00 Completed [facility] Varicella (varivax)(chicken pox) 2006-04-15 00:00:00 Completed [facility] DTAP 2006-04-15 00:00:00 Completed [facility] HIB 4 Dose Schedule 2006-04-15 00:00:00 Completed [facility] HEPATITIS A 2006-04-15 00:00:00 Completed [facility] MMR 2006-04-15 00:00:00 Completed [facility] Pneumococcal 7 Conjugate, PCV7 (Prevnar7) 2006-04-15 00:00:00 Completed [facility] Varicella (varivax)(chicken pox) 2006-04-15 00:00:00 Completed [facility] DTAP 2006-04-15 00:00:00 Completed [facility] HIB 4 Dose Schedule 2006-04-15 00:00:00 Completed [facility] HEPATITIS A 2006-04-15 00:00:00 Completed [facility] MMR 2006-04-15 00:00:00 Completed [facility] Pneumococcal 7 Conjugate, PCV7 (Prevnar7) 2006-04-15 00:00:00 Completed [facility] Varicella (varivax)(chicken pox) 2006-04-15 00:00:00 Completed [facility] DTAP 2006-04-15 00:00:00 Completed [facility] HIB 4 Dose Schedule 2006-04-15 00:00:00 Completed [facility] HEPATITIS A 2006-04-15 00:00:00 Completed [facility] MMR 2006-04-15 00:00:00 Completed [facility] Pneumococcal 7 Conjugate, PCV7 (Prevnar7) 2006-04-15 00:00:00 Completed [facility] Varicella (varivax)(chicken pox) 2006-04-15 00:00:00 Completed [facility] DTAP 2006-04-15 00:00:00 Completed [facility] HIB 4 Dose Schedule 2006-04-15 00:00:00 Completed [facility] HEPATITIS A 2006-04-15 00:00:00 Completed [facility] MMR 2006-04-15 00:00:00 Completed [facility] Pneumococcal 7 Conjugate, PCV7 (Prevnar7) 2006-04-15 00:00:00 Completed [facility] Varicella (varivax)(chicken pox) 2006-04-15 00:00:00 Completed [facility] DTAP 2006-04-15 00:00:00 Completed [facility] HIB 4 Dose Schedule 2006-04-15 00:00:00 Completed [facility] HEPATITIS A 2006-04-15 00:00:00 Completed [facility] MMR 2006-04-15 00:00:00 Completed [facility] Pneumococcal 7 Conjugate, PCV7 (Prevnar7) 2006-04-15 00:00:00 Completed [facility] Varicella (varivax)(chicken pox) 2006-04-15 00:00:00 Completed [facility] DTAP 2006-04-15 00:00:00 Completed [facility] HIB 4 Dose Schedule 2006-04-15 00:00:00 Completed [facility] HEPATITIS A 2006-04-15 00:00:00 Completed [facility] MMR 2006-04-15 00:00:00 Completed [facility] Pneumococcal 7 Conjugate, PCV7 (Prevnar7) 2006-04-15 00:00:00 Completed [facility] Varicella (varivax)(chicken pox) 2006-04-15 00:00:00 Completed [facility] DTAP 2006-04-15 00:00:00 Completed [facility] HIB 4 Dose Schedule 2006-04-15 00:00:00 Completed [facility] HEPATITIS A 2006-04-15 00:00:00 Completed [facility] MMR 2006-04-15 00:00:00 Completed [facility] Pneumococcal 7 Conjugate, PCV7 (Prevnar7) 2006-04-15 00:00:00 Completed [facility] Varicella (varivax)(chicken pox) 2006-04-15 00:00:00 Completed [facility] DTAP 2006-04-15 00:00:00 Completed [facility] HIB 4 Dose Schedule 2006-04-15 00:00:00 Completed [facility] HEPATITIS A 2006-04-15 00:00:00 Completed [facility] MMR 2006-04-15 00:00:00 Completed [facility] Pneumococcal 7 Conjugate, PCV7 (Prevnar7) 2006-04-15 00:00:00 Completed [facility] Varicella (varivax)(chicken pox) 2006-04-15 00:00:00 Completed [facility] DTAP 2006-04-15 00:00:00 Completed [facility] HIB 4 Dose Schedule 2006-04-15 00:00:00 Completed [facility] HEPATITIS A 2006-04-15 00:00:00 Completed [facility] MMR 2006-04-15 00:00:00 Completed [facility] Pneumococcal 7 Conjugate, PCV7 (Prevnar7) 2006-04-15 00:00:00 Completed [facility] Varicella (varivax)(chicken pox) 2006-04-15 00:00:00 Completed [facility] DTAP 2006-04-15 00:00:00 Completed [facility] HIB 4 Dose Schedule 2006-04-15 00:00:00 Completed [facility] HEPATITIS A 2006-04-15 00:00:00 Completed [facility] MMR 2006-04-15 00:00:00 Completed [facility] Pneumococcal 7 Conjugate, PCV7 (Prevnar7) 2006-04-15 00:00:00 Completed [facility] Varicella (varivax)(chicken pox) 2006-04-15 00:00:00 Completed [facility] DTAP 2006-04-15 00:00:00 Completed [facility] HIB 4 Dose Schedule 2006-04-15 00:00:00 Completed [facility] HEPATITIS A 2006-04-15 00:00:00 Completed [facility] MMR 2006-04-15 00:00:00 Completed [facility] Pneumococcal 7 Conjugate, PCV7 (Prevnar7) 2006-04-15 00:00:00 Completed [facility] Varicella (varivax)(chicken pox) 2006-04-15 00:00:00 Completed [facility] DTAP 2006-04-15 00:00:00 Completed [facility] HIB 4 Dose Schedule 2006-04-15 00:00:00 Completed [facility] HEPATITIS A 2006-04-15 00:00:00 Completed [facility] MMR 2006-04-15 00:00:00 Completed [facility] Pneumococcal 7 Conjugate, PCV7 (Prevnar7) 2006-04-15 00:00:00 Completed [facility] Varicella (varivax)(chicken pox) 2006-04-15 00:00:00 Completed [facility] DTAP 2006-04-15 00:00:00 Completed [facility] HIB 4 Dose Schedule 2006-04-15 00:00:00 Completed [facility] HEPATITIS A 2006-04-15 00:00:00 Completed [facility] MMR 2006-04-15 00:00:00 Completed [facility] Pneumococcal 7 Conjugate, PCV7 (Prevnar7) 2006-04-15 00:00:00 Completed [facility] Varicella (varivax)(chicken pox) 2006-04-15 00:00:00 Completed [facility] DTAP 2006-04-15 00:00:00 Completed [facility] HIB 4 Dose Schedule 2006-04-15 00:00:00 Completed [facility] HEPATITIS A 2006-04-15 00:00:00 Completed [facility] MMR 2006-04-15 00:00:00 Completed [facility] Pneumococcal 7 Conjugate, PCV7 (Prevnar7) 2006-04-15 00:00:00 Completed [facility] Varicella (varivax)(chicken pox) 2006-04-15 00:00:00 Completed [facility] DTAP 2006-04-15 00:00:00 Completed [facility] HIB 4 Dose Schedule 2006-04-15 00:00:00 Completed [facility] HEPATITIS A 2006-04-15 00:00:00 Completed [facility] MMR 2006-04-15 00:00:00 Completed [facility] Pneumococcal 7 Conjugate, PCV7 (Prevnar7) 2006-04-15 00:00:00 Completed [facility] Varicella (varivax)(chicken pox) 2006-04-15 00:00:00 Completed [facility] Pneumococcal 7 Conjugate, PCV7 (Prevnar7) 2005-08-25 00:00:00 Completed [facility] Pneumococcal 7 Conjugate, PCV7 (Prevnar7) 2005-08-25 00:00:00 Completed [facility] Pneumococcal 7 Conjugate, PCV7 (Prevnar7) 2005-08-25 00:00:00 Completed [facility] Pneumococcal 7 Conjugate, PCV7 (Prevnar7) 2005-08-25 00:00:00 Completed [facility] Pneumococcal 7 Conjugate, PCV7 (Prevnar7) 2005-08-25 00:00:00 Completed [facility] Pneumococcal 7 Conjugate, PCV7 (Prevnar7) 2005-08-25 00:00:00 Completed [facility] Pneumococcal 7 Conjugate, PCV7 (Prevnar7) 2005-08-25 00:00:00 Completed [facility] Pneumococcal 7 Conjugate, PCV7 (Prevnar7) 2005-08-25 00:00:00 Completed [facility] Pneumococcal 7 Conjugate, PCV7 (Prevnar7) 2005-08-25 00:00:00 Completed [facility] Pneumococcal 7 Conjugate, PCV7 (Prevnar7) 2005-08-25 00:00:00 Completed [facility] Pneumococcal 7 Conjugate, PCV7 (Prevnar7) 2005-08-25 00:00:00 Completed [facility] Pneumococcal 7 Conjugate, PCV7 (Prevnar7) 2005-08-25 00:00:00 Completed [facility] Pneumococcal 7 Conjugate, PCV7 (Prevnar7) 2005-08-25 00:00:00 Completed [facility] Pneumococcal 7 Conjugate, PCV7 (Prevnar7) 2005-08-25 00:00:00 Completed [facility] Pneumococcal 7 Conjugate, PCV7 (Prevnar7) 2005-08-25 00:00:00 Completed [facility] Pneumococcal 7 Conjugate, PCV7 (Prevnar7) 2005-08-25 00:00:00 Completed [facility] Pneumococcal 7 Conjugate, PCV7 (Prevnar7) 2005-08-25 00:00:00 Completed [facility] HIB 4 Dose Schedule 2005-07-17 00:00:00 Completed [facility] Pediarix (dtap/hep B/ipv) 2005-07-17 00:00:00 Completed [facility] Pneumococcal 7 Conjugate, PCV7 (Prevnar7) 2005-07-17 00:00:00 Completed [facility] HIB 4 Dose Schedule 2005-07-17 00:00:00 Completed [facility] Pediarix (dtap/hep B/ipv) 2005-07-17 00:00:00 Completed [facility] Pneumococcal 7 Conjugate, PCV7 (Prevnar7) 2005-07-17 00:00:00 Completed [facility] HIB 4 Dose Schedule 2005-07-17 00:00:00 Completed [facility] Pediarix (dtap/hep B/ipv) 2005-07-17 00:00:00 Completed [facility] Pneumococcal 7 Conjugate, PCV7 (Prevnar7) 2005-07-17 00:00:00 Completed [facility] HIB 4 Dose Schedule 2005-07-17 00:00:00 Completed [facility] Pediarix (dtap/hep B/ipv) 2005-07-17 00:00:00 Completed [facility] Pneumococcal 7 Conjugate, PCV7 (Prevnar7) 2005-07-17 00:00:00 Completed [facility] HIB 4 Dose Schedule 2005-07-17 00:00:00 Completed [facility] Pediarix (dtap/hep B/ipv) 2005-07-17 00:00:00 Completed [facility] Pneumococcal 7 Conjugate, PCV7 (Prevnar7) 2005-07-17 00:00:00 Completed [facility] HIB 4 Dose Schedule 2005-07-17 00:00:00 Completed [facility] Pediarix (dtap/hep B/ipv) 2005-07-17 00:00:00 Completed [facility] Pneumococcal 7 Conjugate, PCV7 (Prevnar7) 2005-07-17 00:00:00 Completed [facility] HIB 4 Dose Schedule 2005-07-17 00:00:00 Completed [facility] Pediarix (dtap/hep B/ipv) 2005-07-17 00:00:00 Completed [facility] Pneumococcal 7 Conjugate, PCV7 (Prevnar7) 2005-07-17 00:00:00 Completed [facility] HIB 4 Dose Schedule 2005-07-17 00:00:00 Completed [facility] Pediarix (dtap/hep B/ipv) 2005-07-17 00:00:00 Completed [facility] Pneumococcal 7 Conjugate, PCV7 (Prevnar7) 2005-07-17 00:00:00 Completed [facility] HIB 4 Dose Schedule 2005-07-17 00:00:00 Completed [facility] Pediarix (dtap/hep B/ipv) 2005-07-17 00:00:00 Completed [facility] Pneumococcal 7 Conjugate, PCV7 (Prevnar7) 2005-07-17 00:00:00 Completed [facility] HIB 4 Dose Schedule 2005-07-17 00:00:00 Completed [facility] Pediarix (dtap/hep B/ipv) 2005-07-17 00:00:00 Completed [facility] Pneumococcal 7 Conjugate, PCV7 (Prevnar7) 2005-07-17 00:00:00 Completed [facility] HIB 4 Dose Schedule 2005-07-17 00:00:00 Completed [facility] Pediarix (dtap/hep B/ipv) 2005-07-17 00:00:00 Completed [facility] Pneumococcal 7 Conjugate, PCV7 (Prevnar7) 2005-07-17 00:00:00 Completed [facility] HIB 4 Dose Schedule 2005-07-17 00:00:00 Completed [facility] Pediarix (dtap/hep B/ipv) 2005-07-17 00:00:00 Completed [facility] Pneumococcal 7 Conjugate, PCV7 (Prevnar7) 2005-07-17 00:00:00 Completed [facility] HIB 4 Dose Schedule 2005-07-17 00:00:00 Completed [facility] Pediarix (dtap/hep B/ipv) 2005-07-17 00:00:00 Completed [facility] Pneumococcal 7 Conjugate, PCV7 (Prevnar7) 2005-07-17 00:00:00 Completed [facility] HIB 4 Dose Schedule 2005-07-17 00:00:00 Completed [facility] Pediarix (dtap/hep B/ipv) 2005-07-17 00:00:00 Completed [facility] Pneumococcal 7 Conjugate, PCV7 (Prevnar7) 2005-07-17 00:00:00 Completed [facility] HIB 4 Dose Schedule 2005-07-17 00:00:00 Completed [facility] Pediarix (dtap/hep B/ipv) 2005-07-17 00:00:00 Completed [facility] Pneumococcal 7 Conjugate, PCV7 (Prevnar7) 2005-07-17 00:00:00 Completed [facility] HIB 4 Dose Schedule 2005-07-17 00:00:00 Completed [facility] Pediarix (dtap/hep B/ipv) 2005-07-17 00:00:00 Completed [facility] Pneumococcal 7 Conjugate, PCV7 (Prevnar7) 2005-07-17 00:00:00 Completed [facility] HIB 4 Dose Schedule 2005-07-17 00:00:00 Completed [facility] Pediarix (dtap/hep B/ipv) 2005-07-17 00:00:00 Completed [facility] Pneumococcal 7 Conjugate, PCV7 (Prevnar7) 2005-07-17 00:00:00 Completed [facility] Pediarix (dtap/hep B/ipv) 2005-05-21 00:00:00 Completed [facility] HIB 4 Dose Schedule 2005-05-21 00:00:00 Completed [facility] Pneumococcal 7 Conjugate, PCV7 (Prevnar7) 2005-05-21 00:00:00 Completed [facility] Pediarix (dtap/hep B/ipv) 2005-05-21 00:00:00 Completed [facility] HIB 4 Dose Schedule 2005-05-21 00:00:00 Completed [facility] Pneumococcal 7 Conjugate, PCV7 (Prevnar7) 2005-05-21 00:00:00 Completed [facility] Pediarix (dtap/hep B/ipv) 2005-05-21 00:00:00 Completed [facility] HIB 4 Dose Schedule 2005-05-21 00:00:00 Completed [facility] Pneumococcal 7 Conjugate, PCV7 (Prevnar7) 2005-05-21 00:00:00 Completed [facility] Pediarix (dtap/hep B/ipv) 2005-05-21 00:00:00 Completed [facility] HIB 4 Dose Schedule 2005-05-21 00:00:00 Completed [facility] Pneumococcal 7 Conjugate, PCV7 (Prevnar7) 2005-05-21 00:00:00 Completed [facility] Pediarix (dtap/hep B/ipv) 2005-05-21 00:00:00 Completed [facility] HIB 4 Dose Schedule 2005-05-21 00:00:00 Completed [facility] Pneumococcal 7 Conjugate, PCV7 (Prevnar7) 2005-05-21 00:00:00 Completed [facility] Pediarix (dtap/hep B/ipv) 2005-05-21 00:00:00 Completed [facility] HIB 4 Dose Schedule 2005-05-21 00:00:00 Completed [facility] Pneumococcal 7 Conjugate, PCV7 (Prevnar7) 2005-05-21 00:00:00 Completed [facility] Pediarix (dtap/hep B/ipv) 2005-05-21 00:00:00 Completed [facility] HIB 4 Dose Schedule 2005-05-21 00:00:00 Completed [facility] Pneumococcal 7 Conjugate, PCV7 (Prevnar7) 2005-05-21 00:00:00 Completed [facility] Pediarix (dtap/hep B/ipv) 2005-05-21 00:00:00 Completed [facility] HIB 4 Dose Schedule 2005-05-21 00:00:00 Completed [facility] Pneumococcal 7 Conjugate, PCV7 (Prevnar7) 2005-05-21 00:00:00 Completed [facility] Pediarix (dtap/hep B/ipv) 2005-05-21 00:00:00 Completed [facility] HIB 4 Dose Schedule 2005-05-21 00:00:00 Completed [facility] Pneumococcal 7 Conjugate, PCV7 (Prevnar7) 2005-05-21 00:00:00 Completed [facility] Pediarix (dtap/hep B/ipv) 2005-05-21 00:00:00 Completed [facility] HIB 4 Dose Schedule 2005-05-21 00:00:00 Completed [facility] Pneumococcal 7 Conjugate, PCV7 (Prevnar7) 2005-05-21 00:00:00 Completed [facility] Pediarix (dtap/hep B/ipv) 2005-05-21 00:00:00 Completed [facility] HIB 4 Dose Schedule 2005-05-21 00:00:00 Completed [facility] Pneumococcal 7 Conjugate, PCV7 (Prevnar7) 2005-05-21 00:00:00 Completed [facility] Pediarix (dtap/hep B/ipv) 2005-05-21 00:00:00 Completed [facility] HIB 4 Dose Schedule 2005-05-21 00:00:00 Completed [facility] Pneumococcal 7 Conjugate, PCV7 (Prevnar7) 2005-05-21 00:00:00 Completed [facility] Pediarix (dtap/hep B/ipv) 2005-05-21 00:00:00 Completed [facility] HIB 4 Dose Schedule 2005-05-21 00:00:00 Completed [facility] Pneumococcal 7 Conjugate, PCV7 (Prevnar7) 2005-05-21 00:00:00 Completed [facility] Pediarix (dtap/hep B/ipv) 2005-05-21 00:00:00 Completed [facility] HIB 4 Dose Schedule 2005-05-21 00:00:00 Completed [facility] Pneumococcal 7 Conjugate, PCV7 (Prevnar7) 2005-05-21 00:00:00 Completed [facility] Pediarix (dtap/hep B/ipv) 2005-05-21 00:00:00 Completed [facility] HIB 4 Dose Schedule 2005-05-21 00:00:00 Completed [facility] Pneumococcal 7 Conjugate, PCV7 (Prevnar7) 2005-05-21 00:00:00 Completed [facility] Pediarix (dtap/hep B/ipv) 2005-05-21 00:00:00 Completed [facility] HIB 4 Dose Schedule 2005-05-21 00:00:00 Completed [facility] Pneumococcal 7 Conjugate, PCV7 (Prevnar7) 2005-05-21 00:00:00 Completed [facility] Pediarix (dtap/hep B/ipv) 2005-05-21 00:00:00 Completed [facility] HIB 4 Dose Schedule 2005-05-21 00:00:00 Completed [facility] Pneumococcal 7 Conjugate, PCV7 (Prevnar7) 2005-05-21 00:00:00 Completed [facility] HIB 4 Dose Schedule 2005-02-16 00:00:00 Completed [facility] Pediarix (dtap/hep B/ipv) 2005-02-16 00:00:00 Completed [facility] HIB 4 Dose Schedule 2005-02-16 00:00:00 Completed [facility] Pediarix (dtap/hep B/ipv) 2005-02-16 00:00:00 Completed [facility] HIB 4 Dose Schedule 2005-02-16 00:00:00 Completed [facility] Pediarix (dtap/hep B/ipv) 2005-02-16 00:00:00 Completed [facility] HIB 4 Dose Schedule 2005-02-16 00:00:00 Completed [facility] Pediarix (dtap/hep B/ipv) 2005-02-16 00:00:00 Completed [facility] HIB 4 Dose Schedule 2005-02-16 00:00:00 Completed [facility] Pediarix (dtap/hep B/ipv) 2005-02-16 00:00:00 Completed [facility] HIB 4 Dose Schedule 2005-02-16 00:00:00 Completed [facility] Pediarix (dtap/hep B/ipv) 2005-02-16 00:00:00 Completed [facility] HIB 4 Dose Schedule 2005-02-16 00:00:00 Completed [facility] Pediarix (dtap/hep B/ipv) 2005-02-16 00:00:00 Completed [facility] HIB 4 Dose Schedule 2005-02-16 00:00:00 Completed [facility] Pediarix (dtap/hep B/ipv) 2005-02-16 00:00:00 Completed [facility] HIB 4 Dose Schedule 2005-02-16 00:00:00 Completed [facility] Pediarix (dtap/hep B/ipv) 2005-02-16 00:00:00 Completed [facility] HIB 4 Dose Schedule 2005-02-16 00:00:00 Completed [facility] Pediarix (dtap/hep B/ipv) 2005-02-16 00:00:00 Completed [facility] HIB 4 Dose Schedule 2005-02-16 00:00:00 Completed [facility] Pediarix (dtap/hep B/ipv) 2005-02-16 00:00:00 Completed [facility] HIB 4 Dose Schedule 2005-02-16 00:00:00 Completed [facility] Pediarix (dtap/hep B/ipv) 2005-02-16 00:00:00 Completed [facility] HIB 4 Dose Schedule 2005-02-16 00:00:00 Completed [facility] Pediarix (dtap/hep B/ipv) 2005-02-16 00:00:00 Completed [facility] HIB 4 Dose Schedule 2005-02-16 00:00:00 Completed [facility] Pediarix (dtap/hep B/ipv) 2005-02-16 00:00:00 Completed [facility] HIB 4 Dose Schedule 2005-02-16 00:00:00 Completed [facility] Pediarix (dtap/hep B/ipv) 2005-02-16 00:00:00 Completed [facility] HIB 4 Dose Schedule 2005-02-16 00:00:00 Completed [facility] Pediarix (dtap/hep B/ipv) 2005-02-16 00:00:00 Completed [facility] HIB 4 Dose Schedule 2005-02-16 00:00:00 Completed [facility] Pediarix (dtap/hep B/ipv) 2005-02-16 00:00:00 Completed [facility] Hep B, Adol or Pedi Dosage 2004 00:00:00 Completed [facility] Hep B, Adol or Pedi Dosage 2004 00:00:00 Completed [facility] Hep B, Adol or Pedi Dosage 2004 00:00:00 Completed [facility] Hep B, Adol or Pedi Dosage 2004 00:00:00 Completed [facility] Hep B, Adol or Pedi Dosage 2004 00:00:00 Completed [facility] Hep B, Adol or Pedi Dosage 2004 00:00:00 Completed [facility] Hep B, Adol or Pedi Dosage 2004 00:00:00 Completed [facility] Hep B, Adol or Pedi Dosage 2004 00:00:00 Completed [facility] Hep B, Adol or Pedi Dosage 2004 00:00:00 Completed [facility] Hep B, Adol or Pedi Dosage 2004 00:00:00 Completed [facility] Hep B, Adol or Pedi Dosage 2004 00:00:00 Completed [facility] Hep B, Adol or Pedi Dosage 2004 00:00:00 Completed [facility] Hep B, Adol or Pedi Dosage 2004 00:00:00 Completed [facility] Hep B, Adol or Pedi Dosage 2004 00:00:00 Completed [facility] Hep B, Adol or Pedi Dosage 2004 00:00:00 Completed [facility] Hep B, Adol or Pedi Dosage 2004 00:00:00 Completed [facility] Hep B, Adol or Pedi Dosage 2004 00:00:00 Completed [facility] HEPATITIS A Unknown Completed [facility] HPV9 Unknown Completed [facility] TDAP Unknown Completed [facility] HIB 4 Dose Schedule Unknown Completed [facility] Hep B, Adol or Pedi Dosage Unknown Completed [facility] Pediarix (dtap/hep B/ipv) Unknown Completed [facility] Pneumococcal 7 Conjugate, PCV7 (Prevnar7) Unknown Completed [facility] Influenza Virus Vaccine Unknown Completed [facility] DTAP Unknown Completed [facility] Varicella (varivax)(chicken pox) Unknown Completed [facility] MMR Unknown Completed [facility] Polio (IPV/OPV) Unknown Completed [facility] HEPATITIS A Unknown Completed [facility] HPV9 Unknown Completed [facility] Meningococcal Polysaccharide (groups A, C, Y and W-135) conjugate vaccine (MCV4P) Unknown Completed [facility] TDAP Unknown Completed [facility] SARS-COV-2 COVID-19 PFIZER VACCINE Unknown Completed [facility] Meningococcal B, OMV Unknown Completed [facility] HIB 4 Dose Schedule Unknown Completed [facility] Hep B, Adol or Pedi Dosage Unknown Completed [facility] Pediarix (dtap/hep B/ipv) Unknown Completed [facility] Pneumococcal 7 Conjugate, PCV7 (Prevnar7) Unknown Completed [facility] Influenza Virus Vaccine Unknown Completed [facility] DTAP Unknown Completed [facility] Varicella (varivax)(chicken pox) Unknown Completed [facility] MMR Unknown Completed [facility] Polio (IPV/OPV) Unknown Completed [facility] HEPATITIS A Unknown Completed [facility] HPV9 Unknown Completed [facility] Meningococcal Polysaccharide (groups A, C, Y and W-135) conjugate vaccine (MCV4P) Unknown Completed [facility] TDAP Unknown Completed [facility] SARS-COV-2 COVID-19 PFIZER VACCINE Unknown Completed [facility] Meningococcal B, OMV Unknown Completed [facility] HIB 4 Dose Schedule Unknown Completed [facility] Hep B, Adol or Pedi Dosage Unknown Completed [facility] Pediarix (dtap/hep B/ipv) Unknown Completed [facility] Pneumococcal 7 Conjugate, PCV7 (Prevnar7) Unknown Completed [facility] Influenza Virus Vaccine Unknown Completed [facility] DTAP Unknown Completed [facility] Varicella (varivax)(chicken pox) Unknown Completed [facility] MMR Unknown Completed [facility] Polio (IPV/OPV) Unknown Completed [facility] HEPATITIS A Unknown Completed [facility] HPV9 Unknown Completed [facility] Meningococcal Polysaccharide (groups A, C, Y and W-135) conjugate vaccine (MCV4P) Unknown Completed [facility] TDAP Unknown Completed [facility] SARS-COV-2 COVID-19 PFIZER VACCINE Unknown Completed [facility] Meningococcal B, OMV Unknown Completed [facility] HIB 4 Dose Schedule Unknown Completed [facility] Hep B, Adol or Pedi Dosage Unknown Completed [facility] Pediarix (dtap/hep B/ipv) Unknown Completed [facility] Pneumococcal 7 Conjugate, PCV7 (Prevnar7) Unknown Completed [facility] Influenza Virus Vaccine Unknown Completed [facility] DTAP Unknown Completed [facility] Varicella (varivax)(chicken pox) Unknown Completed [facility] MMR Unknown Completed [facility] Polio (IPV/OPV) Unknown Completed [facility] HEPATITIS A Unknown Completed [facility] HPV9 Unknown Completed [facility] TDAP Unknown Completed [facility] SARS-COV-2 COVID-19 PFIZER VACCINE Unknown Completed [facility] Meningococcal B, OMV Unknown Completed [facility] Meningococcal Polysaccharide (groups A, C, Y and W-135) conjugate vaccine (MCV4P) Unknown Completed [facility] HIB 4 Dose Schedule Unknown Completed [facility] Hep B, Adol or Pedi Dosage Unknown Completed [facility] Pediarix (dtap/hep B/ipv) Unknown Completed [facility] Pneumococcal 7 Conjugate, PCV7 (Prevnar7) Unknown Completed [facility] Influenza Virus Vaccine Unknown Completed [facility] DTAP Unknown Completed [facility] Varicella (varivax)(chicken pox) Unknown Completed [facility] MMR Unknown Completed [facility] Polio (IPV/OPV) Unknown Completed [facility] HEPATITIS A Unknown Completed [facility] HPV9 Unknown Completed [facility] Meningococcal Polysaccharide (groups A, C, Y and W-135) conjugate vaccine (MCV4P) Unknown Completed [facility] TDAP Unknown Completed [facility] SARS-COV-2 COVID-19 PFIZER VACCINE Unknown Completed [facility] Meningococcal B, OMV Unknown Completed [facility] SARS-COV-2 COVID-19 PFIZER VACCINE Unknown Completed [facility] [place] Meningococcal B, OMV Unknown Completed [facility] Meningococcal Polysaccharide (groups A, C, Y and W-135) conjugate vaccine (MCV4P) Unknown Completed [facility] HIB 4 Dose Schedule Unknown Completed [facility] Hep B, Adol or Pedi Dosage Unknown Completed [facility] Pediarix (dtap/hep B/ipv) Unknown Completed [facility] Pneumococcal 7 Conjugate, PCV7 (Prevnar7) Unknown Completed [facility] Influenza Virus Vaccine Unknown Completed [facility] DTAP Unknown Completed [facility] Varicella (varivax)(chicken pox) Unknown Completed [facility] MMR Unknown Completed [facility] Polio (IPV/OPV) Unknown Completed [facility] Vital Signs Vital Name Observation Time Observation Value Comments S ource Systolic blood pressure 2024-07-07 17:09:00 126 mm[Hg] Janina Seybo ld - External Diastolic blood pressure 2024-07-07 17:09:00 73 mm[Hg] Janina Angybo ld - External Heart rate 2024-07-07 17:09:00 83 /min Kel y Seybold - External Body temperature 2024-07-07 17:09:00 36.89 Roxanne Janina Seybold - External Respiratory rate 2024-07-07 17:09:00 20 /min Janina Angybold - External Body height 2024-07-07 17:09:00 162.6 cm Anamaria donaldson Seybold - External Body weight 2024-07-07 17:09:00 101.334 kg Anamaria ey Seybold - External BMI 2024-07-07 17:09:00 38.35 kg/m2 Anamaria ey Seybold - External Systolic blood pressure 2023-02-24 20:37:00 123 mm[Hg] [facility] Diastolic blood pressure 2023-02-24 20:37:00 86 mm[Hg] [facility] Heart rate 2023-02-24 20:37:00 127 /min [facility] Oxygen saturation in Arterial blood by Pulse oximetry 2023-02-24 20:37:00 96 /min [facility] Respiratory rate 2023-02-24 20:33:00 21 /min [facility] Body height 2023-02-24 20:33:00 165.1 cm [facility] Body weight 2023-02-24 20:33:00 117.3 kg [facility] BMI 2023-02-24 20:33:00 43.03 kg/m2 [facility] Body mass index (BMI) [Percentile] Per age and sex 2023-02-24 20:33:00 99.58 % [facility] Systolic blood pressure 2023-01-25 18:53:00 119 mm[Hg] [facility] Diastolic blood pressure 2023-01-25 18:53:00 79 mm[Hg] [facility] Heart rate 2023-01-25 18:53:00 82 /min [facility] Body temperature 2023-01-25 18:53:00 36.56 Roxanne [facility] Body height 2023-01-25 18:53:00 165.1 cm [facility] Body weight 2023-01-25 18:53:00 117.754 kg [facility] BMI 2023-01-25 18:53:00 43.20 kg/m2 [facility] Body mass index (BMI) [Percentile] Per age and sex 2023-01-25 18:53:00 99.61 % [facility] Oxygen saturation in Arterial blood by Pulse oximetry 2023-01-25 18:53:00 99 /min [facility] Systolic blood pressure 2023-01-18 21:24:00 101 mm[Hg] [facility] Diastolic blood pressure 2023-01-18 21:24:00 68 mm[Hg] [facility] Heart rate 2023-01-18 21:24:00 98 /min [facility] Body temperature 2023-01-18 21:24:00 36.61 Roxanne [facility] Respiratory rate 2023-01-18 21:24:00 20 /min [facility] Body height 2023-01-18 21:24:00 165.1 cm [facility] Body weight 2023-01-18 21:24:00 117.119 kg [facility] BMI 2023-01-18 21:24:00 42.97 kg/m2 [facility] Body mass index (BMI) [Percentile] Per age and sex 2023-01-18 21:24:00 99.58 % [facility] Oxygen saturation in Arterial blood by Pulse oximetry 2023-01-18 21:24:00 100 /min [facility] Systolic blood pressure 2022-12-30 18:41:00 117 mm[Hg] [facility] Diastolic blood pressure 2022-12-30 18:41:00 76 mm[Hg] [facility] Heart rate 2022-12-30 18:41:00 80 /min [facility] Body temperature 2022-12-30 18:41:00 37 Roxanne [facility] Respiratory rate 2022-12-30 18:41:00 18 /min [facility] Body weight 2022-12-30 18:41:00 116.03 kg [facility] Oxygen saturation in Arterial blood by Pulse oximetry 2022-12-30 18:41:00 99 /min [facility] Systolic blood pressure 2022-10-27 22:27:00 128 mm[Hg] [facility] Diastolic blood pressure 2022-10-27 22:27:00 83 mm[Hg] [facility] Heart rate 2022-10-27 22:26:00 106 /min [facility] Body temperature 2022-10-27 22:26:00 36.56 Roxanne [facility] Respiratory rate 2022-10-27 22:26:00 16 /min [facility] Body weight 2022-10-27 22:26:00 115.667 kg [facility] Oxygen saturation in Arterial blood by Pulse oximetry 2022-10-27 22:26:00 99 /min [facility] Systolic blood pressure 2022-08-07 16:50:00 109 mm[Hg] [facility] Diastolic blood pressure 2022-08-07 16:50:00 75 mm[Hg] [facility] Heart rate 2022-08-07 16:50:00 78 /min [facility] Respiratory rate 2022-08-07 16:50:00 18 /min [facility] Body height 2022-08-07 16:50:00 165.1 cm [facility] Body weight 2022-08-07 16:50:00 112.038 kg [facility] BMI 2022-08-07 16:50:00 41.10 kg/m2 [facility] Body mass index (BMI) [Percentile] Per age and sex 2022-08-07 16:50:00 98.99 % [facility] Systolic blood pressure 2022-04-18 19:36:00 111 mm[Hg] [facility] Diastolic blood pressure 2022-04-18 19:36:00 70 mm[Hg] [facility] Heart rate 2022-04-18 19:36:00 100 /min [facility] Body temperature 2022-04-18 19:36:00 36.83 Roxanne [facility] Respiratory rate 2022-04-18 19:36:00 20 /min [facility] Body height 2022-04-18 19:36:00 165.1 cm [facility] Body weight 2022-04-18 19:36:00 107.775 kg [facility] BMI 2022-04-18 19:36:00 39.54 kg/m2 [facility] Body mass index (BMI) [Percentile] Per age and sex 2022-04-18 19:36:00 98.87 % [facility] Oxygen saturation in Arterial blood by Pulse oximetry 2022-04-18 19:36:00 98 /min [facility] Systolic blood pressure 2022-03-12 19:19:00 129 mm[Hg] [facility] Diastolic blood pressure 2022-03-12 19:19:00 87 mm[Hg] [facility] Heart rate 2022-03-12 19:19:00 83 /min [facility] Body temperature 2022-03-12 19:19:00 37 Roxanne [facility] Respiratory rate 2022-03-12 19:19:00 22 /min [facility] Body height 2022-03-12 19:19:00 165.1 cm [facility] Body weight 2022-03-12 19:19:00 105.643 kg [facility] BMI 2022-03-12 19:19:00 38.76 kg/m2 [facility] Body mass index (BMI) [Percentile] Per age and sex 2022-03-12 19:19:00 98.79 % [facility] Oxygen saturation in Arterial blood by Pulse oximetry 2022-03-12 19:19:00 99 /min [facility] Systolic blood pressure 2022-01-28 15:08:00 112 mm[Hg] [facility] Diastolic blood pressure 2022-01-28 15:08:00 74 mm[Hg] [facility] Heart rate 2022-01-28 15:08:00 84 /min [facility] Body temperature 2022-01-28 15:08:00 36.67 Roxanne [facility] Respiratory rate 2022-01-28 15:08:00 16 /min [facility] Body weight 2022-01-28 15:08:00 98.476 kg [facility] Oxygen saturation in Arterial blood by Pulse oximetry 2022-01-28 15:08:00 98 /min [facility] Systolic blood pressure 2022-01-15 18:14:00 114 mm[Hg] [facility] Diastolic blood pressure 2022-01-15 18:14:00 75 mm[Hg] [facility] Heart rate 2022-01-15 18:14:00 73 /min [facility] Body temperature 2022-01-15 18:14:00 36.39 Roxanne [facility] Respiratory rate 2022-01-15 18:14:00 18 /min [facility] Body height 2022-01-15 18:14:00 166.5 cm [facility] Body weight 2022-01-15 18:14:00 98.068 kg [facility] BMI 2022-01-15 18:14:00 35.38 kg/m2 [facility] Body mass index (BMI) [Percentile] Per age and sex 2022-01-15 18:14:00 98.18 % [facility] Oxygen saturation in Arterial blood by Pulse oximetry 2022-01-15 18:14:00 98 /min [facility] Systolic blood pressure 2023-02-24 20:37:00 123 mm[Hg] [facility] Diastolic blood pressure 2023-02-24 20:37:00 86 mm[Hg] [facility] Heart rate 2023-02-24 20:37:00 127 /min [facility] Oxygen saturation in Arterial blood by Pulse oximetry 2023-02-24 20:37:00 96 /min [facility] Respiratory rate 2023-02-24 20:33:00 21 /min [facility] Body height 2023-02-24 20:33:00 165.1 cm [facility] Body weight 2023-02-24 20:33:00 117.3 kg [facility] BMI 2023-02-24 20:33:00 43.03 kg/m2 [facility] Body mass index (BMI) [Percentile] Per age and sex 2023-02-24 20:33:00 99.58 % [facility] Body temperature 2023-01-25 18:53:00 36.56 Roxanne [facility] Head Occipital-frontal circumference by Tape measure 2005-08-25 14:17:00 45 cm [facility] Head Occipital-frontal circumference Percentile 2005-08-25 14:17:00 74.97 % [facility] Procedures Procedure Date / Time Performed Performing Clinician Source POCT SARS-COV-2 ANTIGEN (BINAX NOW) 2023-01-18 21:51:00 Patricia Coburn [facility] POCT MOLECULAR FLU 2023-01-18 21:43:00 Unknown, Attend ing [facility] POCT MOLECULAR STREP 2023-01-18 21:39:00 Unknown, Atte imtiaz [facility] ASSIGNMENT OF BENEFITS 2023-01-18 21:12:54 Docto r Unassigned, [place] [facility] NOTICE OF PRIVACY PRACTICES 2022-12-30 18:20:53 Doctor Unassigned, [place] [facility] CBC WITH DIFF 2022-08-07 17:36:00 Ro Rosa [facility] PATIENT FINANCIAL POLICY 2022-08-07 16:34:49 Doctor Unassigned, [place] [facility] POCT MOLECULAR FLU 2022-04-18 19:48:00 Unknown, Attend ing [facility] POCT URINALYSIS 2022-03-12 19:56:00 Wilberto Patricia [facility] POCT TEST 2022-03-12 19:55:00 Jaylen Patricia [facility] MENINGOCOCCAL B VACCINE, OMV, 2 DOSE, IM 2022-01-15 18:17:32 Annabel Patricia [facility] Encounters Start Date/Time End Date/Time Encounter Type Admission Type Attending [facility] Care Facility Care Department Encounter ID Source 2024-07-07 11:00:00 2024-07-07 11:00:00 Outpatient LYNN ALANIS [id number] Janina Vergara 2023-05-27 10:40:00 2023-05-27 10:40:00 [facility] [id number] 2023-03-09 14:00:00 2023-03-09 14:00:00 Outpatient Angelia VOGEL [facility] [id number] [facility] 2023-02-24 15:20:00 2023-02-24 15:58:22 [facility] [id number] [facility] 2023-02-24 15:20:00 2023-02-24 15:58:22 [facility].2.840.114 350.1.13.10 4.2.7.2.686 [id number] [facility] 2023-02-01 13:40:46 2023-02-01 23:59:00 Outpatient R COREY GONZALEZ [facility] [id number] [facility] 2023-02-01 13:30:00 2023-02-01 23:59:00 Hospital Encounter Corey Gonzalez [facility] 1.0.114 350.1.13.10 4.2.7.2.686 [id number] [facility] 2023-01-25 13:30:00 2023-01-25 15:13:56 [id number] 2023-01-25 13:30:00 2023-01-25 15:13:56 Office Visit Pgy3 Lisa [facility] 1..114 350.1.13.10 4.2.7.2.686 [id number] [facility] 2023-01-18 16:00:00 2023-01-18 16:57:46 Outpatient R TRAM GOMES [facility] [id number] [facility] 2023-01-18 16:00:00 2023-01-18 16:57:46 Urgent Care Tram Gomes Unknown, Attending [facility] 1..114 350.1.13.10 4.2.7.2.686 [id number] [facility] 2023-01-18 00:00:00 2023-01-18 00:00:00 Orders Only Doctor Unassigned, [place] [facility] 1..114 350.1.13.10 4.2.7.2.686 [id number] [facility] 2023-01-02 00:00:00 2023-01-02 00:00:00 Patient Secure Msg Doctor Unassigned, [place] [facility] 1.0.114 350.1.13.10 4.2.7.2.686 [id number] [facility] 2022-12-30 13:20:00 2022-12-30 16:17:36 Outpatient R ANNABEL PATRICIA [facility] [id number] [facility] 2022-12-30 13:20:00 2022-12-30 13:40:00 Office Visit Annabel Patricia [facility] 1.114 350.1.13.10 4.2.7.2.686 [id number] [facility] 2022-12-30 00:00:00 2022-12-30 00:00:00 Orders Only Doctor Unassigned, [place] [facility] 1.114 350.1.13.10 4.2.7.2.686 [id number] [facility] 2022-10-27 17:20:00 2022-10-27 17:35:05 Outpatient R GARRETT DIXON [facility] [id number] [facility] 2022-10-27 17:20:00 2022-10-27 17:35:05 Urgent Care Garrett Dixon Unknown, Attending [facility] 1.84.114 350.1.13.10 4.2.7.2.686 [id number] [facility] 2022-08-07 12:45:00 2022-08-07 13:00:00 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 [id number] [facility] 2022-08-07 11:30:00 2022-08-07 12:12:34 Office Visit Moe Chelseameagan RIKATHERYN [facility] 1.2840.114 350.1.13.10 4.2.7.2.686 [id number] [facility] 2022-08-07 00:00:00 2022-08-07 00:00:00 Orders Only Doctor Unassigned, [place] [facility] 1.2.840.114 350.1.13.10 4.2.7.2.686 [id number] [facility] 2022-08-06 08:30:00 2022-08-06 08:30:00 Outpatient R MOERO CHELSEA ROSAMEAGAN [facility] [id number] [facility] 2022-07-29 13:30:00 2022-07-29 13:30:00 Outpatient R MOE CHELSEAMEAGAN RO ROSA [facility] [id number] [facility] 2022-07-28 08:30:00 2022-07-28 08:30:00 Outpatient R CHELSEA ROSAMEAGAN RO ROSA [facility] [id number] [facility] 2022-04-23 11:30:00 2022-04-23 11:30:00 Outpatient R RO ROSA CHERYAL [facility] [id number] [facility] 2022-04-21 11:30:00 2022-04-21 11:30:00 Outpatient R CHELSEA ROSAMEAGAN RO ROSA [facility] [id number] [facility] 2022-04-18 13:20:00 2022-04-18 14:05:06 Outpatient R CAROLYN ACE [facility] [id number] [facility] 2022-04-18 13:20:00 2022-04-18 14:05:06 Urgent Care Carolyn Ace Unknown, Attending [facility] 1..114 350.1.13.10 4.2.7.2.686 [id number] [facility] 2022-04-18 00:00:00 2022-04-18 00:00:00 Letter (Out) Provider, Christiano Rivas [facility]gent [facility] 1..114 350.1.13.10 4.2.7.2.686 [id number] [facility] 2022-04-18 00:00:00 2022-04-18 00:00:00 Letter (Out) Provider, Christiano Rivas Urgent Care [facility] 1.114 350.1.13.10 4.2.7.2.686 [id number] [facility] 2022-03-24 09:30:00 2022-03-24 09:30:00 Outpatient R RO ROSA CHERYAL [facility] [id number] [facility] 2022-03-19 00:00:00 2022-03-19 00:00:00 Patient Secure Msg Doctor Unassigned, [place] [facility] 1.114 350.1.13.10 4.2.7.2.686 [id number] [facility] 2022-03-12 14:20:00 2022-03-12 15:20:08 Outpatient R ANNABEL PATRICIA [facility] [id number] [facility] 2022-03-12 14:20:00 2022-03-12 15:20:08 Office Visit Annabel Patricia [facility] 1.114 350.1.13.10 4.2.7.2.686 [id number] [facility] 2022-03-12 00:00:00 2022-03-12 00:00:00 Letter (Out) Taqueria [facility] 1.2.840.114 350.1.13.10 4.2.7.2.686 [id number] [facility] 2022-03-12 00:00:00 2022-03-12 00:00:00 Letter (Out) Taqueria Annabel [facility] 1.2.840.114 350.1.13.10 4.2.7.2.686 [id number] [facility] 2022-01-28 10:00:00 2022-01-28 10:13:24 Outpatient R [facility] [id number] [facility] 2022-01-28 10:00:00 2022-01-28 10:13:24 Office Visit Taqueria [facility] 1.2.840.114 350.1.13.10 4.2.7.2.686 [id number] [facility] 2022-01-28 00:00:00 2022-01-28 00:00:00 Letter (Out) [place]queria [facility] 1.2.840.114 350.1.13.10 4.2.7.2.686 [id number] [facility] 2022-01-26 09:00:00 2022-01-26 09:00:00 Outpatient R DAKOTA ROSALES [facility] [id number] [facility] 2022-01-15 13:00:00 2022-01-15 13:39:22 Outpatient R [facility]IA [facility] [id number] [facility] 2022-01-15 13:00:00 2022-01-15 13:39:22 Office Visit Taqueria, [facility] 1.2.840.114 350.1.13.10 4.2.7.2.686 [id number] [facility] 2022-01-15 00:00:00 2022-01-15 00:00:00 Orders Only Doctor Unassigned, [place]orm[place] [facility] 1.2.840.114 350.1.13.10 4.2.7.2.686 [id number] [facility] 2022-01-15 00:00:00 2022-01-15 00:00:00 Letter (Out) Taqueria [facility] 1.2.840.114 350.1.13.10 4.2.7.2.686 [id number] [facility] 2022-01-06 00:00:00 2022-01-06 [facility]:00[facility] 1.2.840.114 350.1.13.10 4.2.7.2.686 [id number] [facility] 2021-12-29 16:00:00 2021-12-29 16:00:00 Outpatient R TAQUERIA ANNABEL [facility] [id number] [facility] 2021-12-21 00:00:00 2021-12-21 00:00[facility]00 [facility] 1.2.840.114 350.1.13.10 4.2.7.2.686 [id number] [facility] 2021-10-29 11:20:00 2021-10-29 11:54:05 Outpatient R [facility]QU[facility]IA [facility] [id number] [facility] 2021-10-29 11:20:00 2021-10-29 11:54:05 Office Visit Taqueria, [facility] 1.2.840.114 350.1.13.10 4.2.7.2.686 [id number] [facility] 2021-10-28 13:20:00 2021-10-28 13:20:00 Outpatient R ANNABEL PATRICIA [facility] [id number] [facility] 2021-10-04 11:01:00 2021-10-04 14:17:00 Emergency X ADITI [facility] ERT [id number] [facility] 2021-10-04 11:01:00 2021-10-04 14:17:00 Emergency Letha Turnerra Oates [facility] 1.2840.114 350.1.13.10 4.2.7.2.686 [id number] [facility] 2021-09-19 19:15:00 2021-09-19 19:15:00 Outpatient R TRAM GOMES [facility] [id number] [facility] 2021-09-19 00:00:00 2021-09-19 00:00:00 Telephone [place] [facility] 1.2840.114 350.1.13.10 4.2.7.2.686 [id number] [facility] 2021-09-19 00:00:00 2021-09-19 00:00:00 Letter (Out) Tram Gomes [facility] 1.2.840.114 350.1.13.10 4.2.7.2.686 [id number] [facility] 2021-09-18 16:00:00 2021-09-18 16:15:00 Laboratory Only Only, Ang Db Test Gifty Friend [facility] 1.2.840.114 350.1.13.10 4.2.7.2.686 [id number] [facility] 2021-09-18 16:00:00 2021-09-18 16:00:00 Outpatient GIFTY GONZÁLES [facility] [id number] [facility] 2021-09-18 00:00:00 2021-09-18 00:00:00 Letter (Out) Provider, Christiano Rivas [facility] 1.2.840.114 350.1.13.10 4.2.7.2.686 [id number] [facility] 2021-09-17 17:00:00 2021-09-17 17:00:00 Urgent Care Gifty Friend [facility] 1..840.114 350.1.13.10 4.2.7.2.686 [id number] [facility] 2021-09-17 17:00:00 2021-09-17 16:55:10 Outpatient Angelia FRIENDGIFTY [facility] [id number] [facility] 2021-09-17 00:00:00 2021-09-17 00:00:00 Letter (Out) Doctor Unassigned, [place] [facility] 1..840.114 350.1.13.10 4.2.7.2.686 [id number] [facility] 2021-09-09 16:00:00 2021-09-09 16:00:00 Outpatient ANNABEL MCDOWELL [facility] [id number] [facility] 2021-09-09 16:00:00 2021-09-09 16:00:00 Office Visit Annabel Patricia [facility] 1..840.114 350.1.13.10 4.2.7.2.686 [id number] [facility] 2021-09-09 16:00:00 2021-09-09 15:55:35 Outpatient ANNABEL MCDOWELL [facility] [id number] [facility] 2021-08-26 16:00:00 2021-08-26 16:00:00 Outpatient R TAQUERIAANNABEL BROOKS [facility] [id number] [facility] 2021-08-19 16:00:00 2021-08-19 16:00:00 Outpatient R TAQUERIAANNABEL BROOKS [facility] [id number] [facility] 2021-07-24 14:00:00 2021-07-24 14:00:00 Outpatient R GRZEGORZ ONEILL [facility] [id number] [facility] 2021-03-13 16:00:00 2021-03-13 16:00:00 Outpatient R [facility]ARRETT [facility] [id number] [facility] 2021-02-11 14:52:13 2021-02-11 15:10:45 Office Visit Jarrett [facility] 1.2.840.114 [id number] [facility] 2021-02-11 15:00:00 2021-02-11 15:00:00 Outpatient R [facility] [id number] [facility] 2021-02-11 00:00:00 2021-02-11 00:00:00 Letter (Out) [facility] [id number] [facility] 2021-02-07 13:30:00 2021-02-07 13:30:00 Outpatient R [facility] [facility] [id number] [facility] 2021-01-08 12:48:43 2021-01-08 13:45:02 Office Visit Angeles Lizarraga [facility] [id number] [facility] 2021-01-08 12:50:00 2021-01-08 12:50:00 Outpatient ANGELES ANNA [facility] [id number] [facility] 2021-01-08 00:00:00 2021-01-08 00:00:00 Telephone Annabel Jarrett [facility] [id number] [facility] 2021-01-08 00:00:00 2021-01-08 00:00:00 Orders Only Doctor Unassigned, [place] [facility] 1..840.114 [id number] [facility] 2020-11-11 10:20:00 2020-11-11 10:20:00 Outpatient ANNABEL KAUFMAN [facility] [id number] [facility] 2019-12-25 15:00:00 2019-12-25 15:00:00 Outpatient ANNABEL KAUFMAN [facility] [id number] [facility] 2019-12-19 14:00:00 2019-12-19 14:00:00 Outpatient JOHNNY BLACK [facility] [id number] [facility] 2019-12-13 10:00:00 2019-12-13 10:00:00 Outpatient JOHNNY BLACK [facility] [id number] [facility] 2019-12-04 14:00:00 2019-12-04 14:00:00 Outpatient ANNABEL KAUFMAN [facility] [id number] [facility] 2019-11-08 10:00:00 2019-11-08 10:00:00 Outpatient MILY TURPIN [facility] [id number] [facility] 2019-10-25 13:40:00 2019-10-25 13:40:00 Outpatient ANNABEL KAUFMAN [facility] [id number] [facility] 2018-07-25 12:55:00 2018-07-25 12:55:00 Outpatient GEE FLYNN [id number] Ciara Boykinann 2018-07-25 12:55:00 2018-07-25 12:55:00 Outpatient GEE FLYNN [id number] Ciara Riley Results Test Description Test Time Test Comments Results Result Co mments Source [facility] SARS-COV-2 ANTIGEN (BINAX NOW)2023-01-18 21:51:00* Test Item Value Reference Range Interpretation Comme nts POCT SARS-COV-2 ANTIGEN (cammie t code = 41236-2) Not Detected Not Detected On board controls acceptable with C Line (test code = 3574) Yes [facility] MOLECULAR [id number] 21:46:48* Test Item Value Reference Range Interpretation Comme nts POCT Molecular Strep (test c ode = 09354-8) Negative Negative Lab Interpretation (test cod e = 74375-4) Normal [facility] MOLECULAR [id number] 20:00:03* Test Item Value Reference Range Interpretation Comme nts POCT Molecular FluA (test co de = 53690-0) Negative Negative POCT Molecular FluB (test co de = 73983-2) Negative Negative Lab Interpretation (test cod e = 21913-3) Normal [facility] [id number] 19:56:00* Test Item Value Reference Range Interpretation Comme nts POCT PREG (test code = 1605) Negative On board controls acceptable with C Line (test code = 3574) Yes POCT PREG LOT # (test code = 3575) POCT PREG TEST DATE ( test code = 3576) Lab Interpretation (test cod e = 71527-4) Normal [facility] URINALYSIS W SPECIFIC [id number] 19:56:00* Test Item Value Reference Range Interpretation Comme nts POCT U SP GRAV (test code = 3255) 1.010 mg/dl 1.005-1.025 POCT PH U (test code = 3254) 8 mg/dl 5-8 POCT U LEUK EST (test code = 3263) negative Negative - Negative POCT U NIT (test code = 3262) negative Negative - Negati ve POCT U PROT (test code = 3259) negative Negative - Negative POCT U GLU (test code = 3256) negative Negative - Negati ve POCT U KETONE (test code = 3258) negative Negative - Negative POCT U UROBILI (test code = 3260) negative 0.2-1 POCT U BILI (test code = 3261) negative Negative - Negative POCT U BLD (test code = 3257) negative Negative - Negati ve POCT U COLOR (test code = 3266) POCT U APPEAR (test code = 3267) Lab Interpretation (test cod e = 09130-7) [id number] 19:56:00* Test Item Value Reference Range Interpretation Comme nts POCT PREG (test code = 1605) Negative On board controls acceptable with C Line (test code = 3574) Yes POCT PREG LOT # (test code = 3575) POCT PREG TEST DATE ( test code = 3576) Lab Interpretation (test cod e = 90543-0) [facility] W SPECIFIC [id number] 19:56:00* Test Item Value Reference Range Interpretation Comme nts POCT U SP GRAV (test code = 3255) 1.010 mg/dl 1.005-1.025 POCT PH U (test code = 3254) 8 mg/dl 5-8 POCT U LEUK EST (test code = 3263) negative Negative - Negative POCT U NIT (test code = 3262) negative Negative - Negati ve POCT U PROT (test code = 3259) negative Negative - Negative POCT U GLU (test code = 3256) negative Negative - Negati ve POCT U KETONE (test code = 3258) negative Negative - Negative POCT U UROBILI (test code = 3260) negative 0.2-1 POCT U BILI (test code = 3261) negative Negative - Negative POCT U BLD (test code = 3257) negative Negative - Negati ve POCT U COLOR (test code = 3266) POCT U APPEAR (test code = 3267) Lab Interpretation (test cod e = 47954-9) Normal [facility] Notes Date/Time Note Provider Source 2024-07-07 11:13:52 Milan Helton is a 18 year old female Chief Complaint Patient presents with Sore Throat Started last night Congestion 6 days Gladys HAGER II [facility]
--- NOTE | 2024-12-22 01:19 | EDPHYS ---
Physician Documentation [facility] Name: Wendie Marie Age: 19 yrs Sex: Female : 2005 Arrival Date: 12/21/2024 Time: 23:06 Bed 5 Private MD: ED Physician Chad Gambino HPI: 12/21 23:24 This 19 yrs old Female presents to ER via Unassigned with complaints of Hand Injury. rn 23:24 Patient reports right hand caught in a car door accidentally. Pain when making a fist. rn Bruising present. No other injury.. 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 - Infectious Disease History:: Denies. - Family history:: not pertinent. - Social history:: Smoking status: Reported history of juuling and/or vaping. - Hospitalizations: : No recent hospitalization is reported. ROS: 23:24 Constitutional: Negative for fever, chills, and weight loss, MS/Extremity: Positive for rn pain and swelling to right hand Exam: 23:24 Constitutional: This is a well developed, well nourished patient who is awake, alert, rn and in no acute distress. Ambulatory to room without assistance or difficulty MS/ Extremity: Pulses equal, no cyanosis. Neurovascular intact. Swelling and ecchymosis along the dorsum of the right hand from 2nd-5th knuckles. No open wounds or lacerations. No scissoring noted when making fist. No wrist or forearm tenderness or deformity. Vital Signs: 23:12 BP 131 / 87; Pulse 70; Resp 16; Temp 98.5; Pulse Ox 100% ; Weight 99.79 kg; Height 5 vc1 ft. 5 in. ; Pain 5/10; 12/22 00:28 BP 110 / 73; Pulse 62; Resp 16; Pulse Ox 99% ; vc1 01:23 BP 108 / 70; Pulse 56; Resp 18; Temp 98.5; Pulse Ox 100% ; Pain 0/10; bm8 12/21 23:12 Body Mass Index 36.61 (99.79 kg, 165.1 cm) vc1 12/21 23:12 Pain Scale: Adult vc1 01:23 Pain Scale: Adult bm8 Westhoff Coma Score: 01:23 Eye Response: spontaneous(4). Motor Response: obeys commands(6). Verbal Response: bm8 oriented(5). Total: 15. MDM: 12/21 23:12 Medical Screening Exam initiated rn 12/22 01:17 Differential diagnosis: closed fracture, contusion. Data reviewed: vital signs, nurses rn notes, radiologic studies, plain films. Independent interpretation of the following test(s) in the Emergency Department X-Ray: My interpretation is X-ray right hand images negative for acute fracture or dislocation per my interpretation. Counseling: I had a detailed discussion with the patient and/or guardian regarding the historical points, exam findings, and any diagnostic results supporting the discharge/admit diagnosis, radiology results, the need for outpatient follow up, to return to the emergency department if symptoms worsen or persist or if there are any questions or concerns that arise at home. Special discussion: I discussed with the patient/guardian in detail that at this point there is no indication for admission to the hospital. It is understood, however, that if the symptoms persist or worsen the patient needs to return immediately for re-evaluation. 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 EDWI EDMS
--- NOTE | 2024-12-22 01:19 | ER ---
Nurse's Notes [facility] Name: Wendie Marie Age: 19 yrs Sex: Female : 2005 Arrival Date: 12/21/2024 Time: 23:06 Bed 5 Private MD: Diagnosis: Contusion of right hand Presentation: 12/21 23:12 Chief complaint: Patient states: sister slammed car door on right hand. Coronavirus vc1 screen: Client denies travel out of the [place] in the last 14 days. At this time, the client does not indicate any symptoms associated with coronavirus-19. Ebola Screen: Patient negative for fever greater than or equal to 101.5 degrees Fahrenheit, and additional compatible Ebola Virus Disease symptoms Patient denies exposure to infectious person. Patient denies travel to an Ebola-affected area in the 21 days before illness onset. No symptoms or risks identified at this time. Initial Sepsis Screen: Does the patient meet any 2 criteria? No. Patient's initial sepsis screen is negative. Does the patient have a suspected source of infection? No. Patient's initial sepsis screen is negative. Risk Assessment: Do you want to hurt yourself or someone else? Patient reports no desire to harm self or others. Onset of symptoms was December 21, 2024. 23:12 Acuity: АЛЕКСАНДР 4 vc1 23:12 Method Of Arrival: Ambulatory vc1 23:12 Care prior to arrival: Medication(s) given: Motrin, 800 mg. vc1 Triage Assessment: 23:45 General: Appears in no apparent distress. uncomfortable, obese, Behavior is calm, vc1 cooperative, appropriate for age. Pain: Complains of pain in right hand Pain does not radiate. Pain currently is 5 out of 10 on a pain scale. at worst was 8 out of 10 on a pain scale. Noted to be resistant to movement. EENT: No deficits noted. No signs and/or symptoms were reported regarding the EENT system. Neuro: Level of Consciousness is awake, alert, obeys commands, Oriented to person, place, time, situation, Appropriate for age. Cardiovascular: Heart tones S1 S2 present Capillary refill < 3 seconds Patient's skin is warm and dry. Respiratory: Airway is patent Respiratory effort is even, unlabored, Respiratory pattern is regular, symmetrical, Breath sounds are clear bilaterally. GI: No deficits noted. No signs and/or symptoms were reported involving the gastrointestinal system. : No deficits noted. No signs and/or symptoms were reported regarding the genitourinary system. Derm: Bruising that is bright red. Musculoskeletal: Circulation, motion, and sensation intact. Range of motion: intact in all extremities, Swelling present in right hand. Injury Description: slammed in car door. 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 - Infectious Disease History:: Denies. - Family history:: not pertinent. - Social history:: Smoking status: Reported history of juuling and/or vaping. - Hospitalizations: : No recent hospitalization is reported. Screenin:45 [facility] ED Fall Risk Assessment (Adult) History of falling in the last 3 months, vc1 including since admission No falls in past 3 months (0 pts) Confusion or Disorientation No (0 pts) Intoxicated or Sedated No (0 pts) Impaired Gait No (0 pts) Mobility Assist Device Used No (0 pt) Altered Elimination No (0 pt) Score/Fall Risk Level 0 - 2 = Low Risk Oriented to surroundings, Maintained a safe environment, Educated pt \T\ family on fall prevention, incl call for assistance when getting out of bed, Assessed \T\ reinforced patient's understanding of fall precautions, Hourly rounding (assess needs \T\ fall precautionary measures) done. Abuse screen: Denies threats or abuse. Nutritional screening: No deficits noted. Tuberculosis screening: No symptoms or risk factors identified. Assessment: 23:47 Reassessment: see triage assessment. General:. vc1 12/22 00:28 Reassessment: Patient appears in no apparent distress at this time. No changes from vc1 previously documented assessment. Patient and/or family updated on plan of care and expected duration. Pain level reassessed. Patient is alert, oriented x 3, equal unlabored respirations, skin warm/dry/pink. 01:23 Reassessment: Patient appears in no apparent distress at this time. Patient and/or bm8 family updated on plan of care and expected duration. Pain level reassessed. Patient is alert, oriented x 3, equal unlabored respirations, skin warm/dry/pink. Patient states feeling better. Patient states symptoms have improved. Vital Signs: 12/21 23:12 BP 131 / 87; Pulse 70; Resp 16; Temp 98.5; Pulse Ox 100% ; Weight 99.79 kg; Height 5 vc1 ft. 5 in. ; Pain 5/10; 12/22 00:28 BP 110 / 73; Pulse 62; Resp 16; Pulse Ox 99% ; vc1 01:23 BP 108 / 70; Pulse 56; Resp 18; Temp 98.5; Pulse Ox 100% ; Pain 0/10; bm8 12/21 23:12 Body Mass Index 36.61 (99.79 kg, 165.1 cm) vc1 12/21 23:12 Pain Scale: Adult vc1 01:23 Pain Scale: Adult bm8 Fredis Coma Score: 01:23 Eye Response: spontaneous(4). Motor Response: obeys commands(6). Verbal Response: bm8 oriented(5). Total: 15. ED Course: 12/21 23:10 Patient arrived in ED. al6 23:12 Chad aGmbino MD is Attending Physician. rn 23:34 XRAY Hand RIGHT 3 View In Process Unspecified. EDMS 23:44 Triage completed. vc1 23:45 Arm band placed on left wrist. vc1 23:48 Patient has correct armband on for positive identification. Bed in low position. Call vc1 light in reach. Adult w/ patient. Provided Education on: plan of care. Pulse ox on. NIBP on. Ice pack to injury. 12/22 00:27 Shayy Perez, KEVIN is Primary Nurse. vc1 01:23 No provider procedures requiring assistance completed. Patient did not have IV access bm8 during this emergency room visit. Administered Medications: No medications were administered Medication: 12/21 23:45 VIS not applicable for this client. vc1 Outcome: 12/22 01:18 Discharge ordered by . rn 01:23 Discharged to home ambulatory, bm8 01:23 Condition: stable 01:23 Discharge instructions given to patient, family, Instructed on discharge instructions, follow up and referral plans. Demonstrated understanding of instructions, follow-up care, 01:25 Patient left the ED. bm8 Signatures: Dispatcher [employer] EDChad Salgado MD MD rn Calcote, Vanessa RN RN vc1 Yoshi Bruce RN RN bm8 Karol Mo al6
[2024-12-22 05:30] VITALS: TEMP 98.5
[2024-12-22 05:33] VITALS: BP 108/70; O2SAT 100
--- NOTE | 2024-12-22 06:07 | RAD REPORT ---
XR HAND 3 OR MORE VIEWS RIGHT INDICATION: Patient age: 19 years. Patient gender: Female. Pain. . TECHNIQUE: 3 views of the right hand COMPARISON: None FINDINGS: Bones: No fractures or bone lesions. Joint spaces: Unremarkable. Soft tissues: Nonspecific soft tissue swelling. Other: Unremarkable. IMPRESSION: Nonspecific soft tissue swelling. No acute bony abnormality. Electronically signed by: Breezy Clifton MD 12/22/2024 01:15 AM CDT RP Z Due to temporary technical issues with the PACS/Pusher reporting system, reports are being jessica d by the in-house radiologist without review as a courtesy to ensure prompt reporting the interpreting radiologist is fully responsible for the content of the report. Transcribed Date/Time: 12/22/2024 6:06 AM
== END 2024-12-22 01:25 | disposition home or self-care (01) ==
LOC: ER 23:06
DX: S60.221A Contusion of right hand, initial encounter (principal)
CPT/HCPCS: 99283